=== PATIENT | female | born 1945 | race Caucasian/White ===

== ENCOUNTER 2020-06-08 17:29 | Inpatient (IN) ==
[2020-06-08] MEDS ORDERED: SODIUM CHLORIDE 0.9% 1000ML 500 ML IV ONE (17:37)
--- NOTE | 2020-06-08 17:47 | Emergency Department Note ---
Impression & Plan Aspiration pneumonia, Acute hypotension, Hypoxia, Acute respiratory acidosis, Post-operative pain ED Provider Note NAME: ALEXIS SHELL AGE: 74 SEX: F : 1945 ARRIVES VIA: Ambulance INFORMANT: Patient, ED PROVIDER(S): Micha Olsen DO CHIEF COMPLAINT: Difficulty breathing HPI: The patient is a 74-year-old female who presented to the emergency department from the surgery center at [facility] for an evaluation of low blood pressure and difficulty breathing. There is no reported vomiting. The patient is status post laparoscopic cholecystectomy as well as incisional hernia repair. This was done under general anesthesia. The patient arrived to the emergency department with all of her paperwork from [facility]. She received medazepam fentanyl propofol lidocaine rocuronium famotidine dexamethasone Dantron and then she received phenylephrine and ephedrine and push dose pressors. She also received neostigmine acetaminophen sugammadex and glycopyrrolate. She was in the postoperative area and still was not able to be easily aroused. She received an IV fluid bolus. Because of ongoing hypotension and hypoxia she was sent to the emergency department for further evaluation. The patient was placed on supplemental oxygen and at this time is maintaining an acceptable oxygen saturation. She denies having any chest pain or trouble with cough. She did have significant abdominal pain upon arrival. ROS: See above HPI for pertinent positives & negatives. A total of 10 systems reviewed and were otherwise negative. PAST MEDICAL HISTORY: See Below PAST SURGICAL HISTORY: See Below FAMILY HISTORY: See Below SOCIAL HISTORY: See Below HOME MEDICATIONS: See Below ALLERGIES: See Below VITALS: See Below PHYSICAL EXAMINATION: GENERAL: The patient is awake to verbal commands. She is somnolent and falls asleep easily. She does not appear to be uncomfortable this time. EYES: The conjunctivae are clear. The pupils are constricted and minimally reactive bilaterally. EARS, NOSE, MOUTH AND THROAT: The nose is without any evidence of any deformity. Mucous membranes are moist. NECK: The neck is nontender and supple. RESPIRATORY: Shallow respirations were noted. There were diminished breath sounds at the left base. There is no tachypnea or conversational dyspnea. CARDIOVASCULAR: Regular rate and rhythm noted there no murmurs rubs or gallops normal S1 normal S2. GASTROINTESTINAL: The abdomen is mildly distended but soft. Postoperative sites are noted with clean wound dressings in place. MUSCULOSKELETAL/EXTREMITIES: There is no evidence of gross deformity full range of motion is noted in the hips and shoulders. SKIN: There is no obvious evidence of any rash. There are no petechiae, pallor or cyanosis noted. NEUROLOGIC: Patient is oriented to person place and situation. MEDICAL DECISION MAKING: The patient is a 74-year-old female who presented to the emergency department from [facility]. The patient had laparoscopic cholecystectomy with incisional hernia repair. She received general anesthesia. It was noted that the patient was hypotensive hypoxic and difficult to arouse in the postoperative arena. There is no reported vomiting but the patient presented to the emergency department with a work-up that could be consistent with aspiration pneumonia. I discussed the patient's laboratory and radiographic studies with her. She was maintained on supplemental oxygen. She was treated with a small IV fluid bolus. She was found to have an elevated troponin in the emergency department which could be secondary to push dose pressors but further radiographic studies were obtained to ensure this was not pulmonary venous thromboembolic disease. I discussed the patient's laboratory and radiographic studies with the on-call general surgeon. He evaluated the patient in the emergency department. I also discussed his case with the on-call [facility] hospitalist. They will evaluate the patient in the emergency department for further management and disposition. Triage Nursing notes reviewed. Prior medical records reviewed Vital Signs: reviewed and remarkable for hypoxia and initial hypotension. Differential diagnosis: Differential diagnosis in this patient could include overdose, medication reacti on, aspiration, cardiac dysrhythmia and other differential diagnoses were considered. ER treatment provided: See below Diagnostics interpreted by me: ECG: EKG was obtained in the emergency department. My interpretation is normal sinus rhythm at 69 bpm. There is no ectopy. QTC was prolonged at 510. There were no acute ST segment abnormalities. This was compared to a tracing from November 222019. The QTC is prolonged compared to the previous tracing. Cardiac Monitoring: An order was placed for continuous cardiac monitoring. The monitor shows a rate of 90 with sinus rhythm. Laboratory studies: As stated above and show below. Imaging studies: See below Consultation(s): 1829: I discussed this case with Dr. Shell. He was on-call for general surgery. 2009: I discussed this case with Dr[facility] He will evaluate the patient in the emergency department for further management and disposition. 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 Beliefs That Will Affect Care: None Current Living Situation: Spouse Feels Safe at Home: Yes Allergies Allergies Allergy/AdvReac Type Severity Reaction Status Date / Time Sulfa (Sulfonamide Allergy Rash Verified 06/08/20 19:53 Antibiotics) Home Meds Home Medications Medication Instructions Recorded Confirmed Probiotic 3,000 mmu cells PO HS 11/16/19 06/08/20 amlodipine 10 mg PO HS 11/16/19 06/08/20 aspirin [Aspir-81] 81 mg PO QAM 11/16/19 06/08/20 lisinopril 5 mg PO HS 11/16/19 06/08/20 simvastatin 20 mg PO HS 11/16/19 06/08/20 acetaminophen [Tylenol Extra 1,000 mg PO Q6H PRN 06/08/20 06/08/20 Strength] cholecalciferol (vitamin D3) 20 mcg PO DAILY 06/08/20 06/08/20 [Vitamin D3] Results & Data (ED) Vital Signs Vital Signs - 24 hr 06/08/20 17:32 06/08/20 17:35 06/08/20 17:41 Temperature 36.7 C Temperature Source Oral Pulse Rate 64 65 65 Pulse Rate [Apical] Pulse Rate from SpO2 Sensor 64 Pulse Rhythm Regular Pulse Strength Normal Respiratory Rate 23 13 18 Respiratory Effort / Characteristics Non-Labored Respiratory Depth Normal Blood Pressure 85/55 L 85/55 L Blood Pressure [Left Arm] Blood Pressure Mean 65 65 Blood Pressure Mean [Left Arm] Blood Pressure Position Lying Pulse Oximetry 87 L Oxygen Delivery Method Room Air Oxygen Flow Rate Sepsis Recent Fever Within 48 Hours No Sepsis New/Unexplained Change in Mental Status N/A Sepsis Action Taken by Nursing No Action Required End-Tidal CO2 06/08/20 18:00 06/08/20 18:17 06/08/20 18:30 Temperature Temperature Source Pulse Rate 62 83 62 Pulse Rate [Apical] Pulse Rate from SpO2 Sensor 64 82 61 Pulse Rhythm Pulse Strength Respiratory Rate Respiratory Effort / Characteristics Respiratory Depth Blood Pressure 121/51 L Blood Pressure [Left Arm] Blood Pressure Mean 87 Blood Pressure Mean [Left Arm] Blood Pressure Position Pulse Oximetry 98 96 90 Oxygen Delivery Method Nasal Cannula Oxygen Flow Rate 3 Sepsis Recent Fever Within 48 Hours Sepsis New/Unexplained Change in Mental Status Sepsis Action Taken by Nursing End-Tidal CO2 24 25 26 06/08/20 19:44 Temperature Temperature Source Pulse Rate Pulse Rate [Apical] 81 Pulse Rate from SpO2 Sensor Pulse Rhythm Pulse Strength Respiratory Rate 18 Respiratory Effort / Characteristics Respiratory Depth Blood Pressure Blood Pressure [Left Arm] 131/69 Blood Pressure Mean Blood Pressure Mean [Left Arm] 89 Blood Pressure Position Pulse Oximetry 90 Oxygen Delivery Method Nasal Cannula Oxygen Flow Rate 3 Sepsis Recent Fever Within 48 Hours Sepsis New/Unexplained Change in Mental Status Sepsis Action Taken by Nursing End-Tidal CO2 Home Medications Current Medication List: was personally reviewed by me Laboratory Data Attestation: I reviewed the patient's lab results. Result diagrams: 06/08/20 18:33 06/08/20 18:33 Lab Results 06/08/20 06/08/20 06/08/20 Range/Units 18:33 18:33 18:33 WBC 21.21 H (4.8-10.8) K/uL RBC 4.15 L (4.2-5.4) M/uL Hgb 12.4 (12.0-16.0) g/dL Hct 38.4 (37-47) % MCV 92.5 (80-100) fL MCH 29.9 (25-34) pg MCHC 32.3 (32-36) g/dL RDW Std Deviation 45.7 (36.4-46.3) fL RDW Coeff of Reji 13.5 (11.5-14.5) % Plt Count 367 (130-400) K/uL MPV 9.8 (7.4-10.4) fL Immature Gran % (Auto) 0.3 % Neut % (Auto) 94.2 % Lymph % (Auto) 3.9 % [place] % (Auto) 1.6 % Eos % (Auto) 0.0 % Baso % (Auto) 0.0 % Neut # (Auto) 19.97 H (1.4-6.5) K/uL Lymph # (Auto) 0.82 L (1.2-3.4) K/uL [place] # (Auto) 0.34 (0.11-0.59) K/uL Eos # (Auto) 0.01 (0-0.5) K/uL Baso # (Auto) 0.01 (0-0.2) K/uL Immature Gran # (Auto) 0.06 H (0.00-0.02) K/uL PT 10.6 (9.0-12.0) Seconds INR 1.0 (0.9-1.1) APTT 25.4 (21.0-31.0) Seconds PTT Ratio 0.9 VBG pH (7.36-7.41) VBG pCO2 (38-50) mmHg VBG pO2 mmHg VBG HCO3 mmol/L VBG O2 Saturation % VBG Base Excess mEq/L Barometric Pressure mm/Hg Sodium 139 (136-145) mmol/L Potassium 3.3 L (3.5-5.1) mmol/L Chloride 109 H (98-107) mmol/L Carbon Dioxide 21 (21-32) mmol/L Anion Gap 9.0 (3-11) BUN 15 (7-18) mg/dl Creatinine 1.17 (0.6-1.2) mg/dl Est Cr Clr Drug Dosing 39.1 ml/min Est GFR ( Amer) 53.2 Est GFR (Non-Af Amer) 45.9 BUN/Creatinine Ratio 12.7 (10-20) Glucose 154 H (70-99) mg/dl Calcium 8.1 L (8.5-10.1) mg/dl Magnesium 2.1 (1.8-2.4) mg/dl Total Bilirubin 0.4 (0.2-1) mg/dl AST 61 H (15-37) U/L ALT 53 (12-78) U/L Alkaline Phosphatase 58 (45-117) U/L Troponin I 0.135 H* (0-0.045) ng/ml Total Protein 6.7 (6.4-8.2) gm/dl Albumin 3.4 (3.4-5.0) gm/dl Globulin 3.3 (2.5-4.0) gm/dl Albumin/Globulin Ratio 1.0 (0.9-2) 06/08/20 Range/Units 18:33 WBC (4.8-10.8) K/uL RBC (4.2-5.4) M/uL Hgb (12.0-16.0) g/dL Hct (37-47) % MCV (80-100) fL MCH (25-34) pg MCHC (32-36) g/dL RDW Std Deviation (36.4-46.3) fL RDW Coeff of Reji (11.5-14.5) % Plt Count (130-400) K/uL MPV (7.4-10.4) fL Immature Gran % (Auto) % Neut % (Auto) % Lymph % (Auto) % [place] % (Auto) % Eos % (Auto) % Baso % (Auto) % Neut # (Auto) (1.4-6.5) K/uL Lymph # (Auto) (1.2-3.4) K/uL [place] # (Auto) (0.11-0.59) K/uL Eos # (Auto) (0-0.5) K/uL Baso # (Auto) (0-0.2) K/uL Immature Gran # (Auto) (0.00-0.02) K/uL PT (9.0-12.0) Seconds INR (0.9-1.1) APTT (21.0-31.0) Seconds PTT Ratio VBG pH 7.24 L (7.36-7.41) VBG pCO2 51 H (38-50) mmHg VBG pO2 31 mmHg VBG HCO3 21 mmol/L VBG O2 Saturation < 60.0 % VBG Base Excess -6.5 mEq/L Barometric Pressure 734.3 mm/Hg Sodium (136-145) mmol/L Potassium (3.5-5.1) mmol/L Chloride (98-107) mmol/L Carbon Dioxide (21-32) mmol/L Anion Gap (3-11) BUN (7-18) mg/dl Creatinine (0.6-1.2) mg/dl Est Cr Clr Drug Dosing ml/min Est GFR ( Amer) Est GFR (Non-Af Amer) BUN/Creatinine Ratio (10-20) Glucose (70-99) mg/dl Calcium (8.5-10.1) mg/dl Magnesium (1.8-2.4) mg/dl Total Bilirubin (0.2-1) mg/dl AST (15-37) U/L ALT (12-78) U/L Alkaline Phosphatase (45-117) U/L Troponin I (0-0.045) ng/ml Total Protein (6.4-8.2) gm/dl Albumin (3.4-5.0) gm/dl Globulin (2.5-4.0) gm/dl Albumin/Globulin Ratio (0.9-2) Administered Medications Discontinued Medications Sodium Chloride (Nss 1000ml) 500 mls @ 999 mls/hr IV .Q31M ONE Stop: 06/08/20 18:07 Last Infusion: 06/08/20 18:25 Dose: 0 mls/hr Documented by: [id number] Admin: 06/08/20 17:55 Dose: 999 mls/hr Documented by: [id number] Ioversol (Optiray 320 125ml) 119 ml IV ONCE ONE Stop: 06/08/20 19:18 Last Admin: 06/08/20 19:19 Dose: 119 ml Documented by: [id number] Imaging Data Radiologist's Impression: CT ANGIOGRAPHY OF THE CHEST, PULMONARY EMBOLUS PROTOCOL CLINICAL HISTORY: Dyspnea. COMPARISON STUDY: Chest radiograph November 22, 2019 and June 08, 2020. TECHNIQUE: Following IV administration of 119 mL of Optiray-320, helical axial images of the chest were obtained utilizing the pulmonary embolus protocol. Maximal intensity projections and sagittal and coronal reformats were viewed on an independent 3D workstation. IV contrast was administered without complication. Automated exposure control was utilized for the study. A dose lowering technique was utilized adhering to the principles of ALARA. CT DOSE: 312.94 mGy.cm FINDINGS: No pulmonary emboli are identified. There is no evidence for thoracic aortic dissection. Mild cardiomegaly is noted. There is no pericardial effusion. A small hiatal hernia is noted. The esophagus is fluid-filled and mildly dilated. There is no pneumothorax. There are trace bilateral pleural effusions. Moderate right lower lobe airspace opacity is noted. There is also airspace opacity within the dependent aspects of the upper lobes and left lower lobe. There is moderate emphysema. Interlobular septal thickening indicates pulmonary edema. Visualized portions of the upper abdomen demonstrate pneumoperitoneum and a small amount of perihepatic ascites. There is no thoracic lymphadenopathy. IMPRESSION: 1. No pulmonary emboli identified. 2. Interlobular septal thickening consistent with interstitial pulmonary edema. Trace bilateral pleural effusions. 3. Moderate right lower lobe airspace opacity. Additional mild airspace opacities within the bilateral upper lobes and left lower lobe. The findings may reflect pneumonia or atelectasis. 4. Moderate emphysema. 5. Small hiatal hernia. Mildly dilated fluid-filled esophagus which could place the patient at risk for aspiration. 6. Pneumoperitoneum and perihepatic ascites which is likely postsurgical. ACT 112: Negative or not required by law. Electronically signed by: Asher Butler M.D. 06/08/2020 7:43 PM Dictated: 06/08/201934 Transcribed: 06/08/201934 XR chest 1V portable CLINICAL HISTORY: Dyspnea COMPARISON STUDY: Chest radiograph November 22, 2019 FINDINGS: There is no pneumothorax or pleural effusion. Mild interstitial thickening is noted. Linear bibasilar opacities are present. There is mild cardiomegaly. Lung volumes are mildly diminished. IMPRESSION: 1. Mild interstitial thickening which favors mild pulmonary edema. An infectious process could appear similar but is considered less likely. Radiographic follow up is recommended. 2. Linear bibasilar opacities which favor atelectasis. ACT 112: Negative or not required by law. Electronically signed by: Asher Butler M.D. 06/08/2020 6:13 PM Dictated: 06/08/201811 Transcribed: 06/08/201811 Prescription Drug Monitoring [place] Drug Monitoring Program reviewed and no issues identified Blood Pressure Blood Pressure Findings: Low blood pressure Discharge Plan Visit Data Chief Complaint: Hypotension Stated Complaint: hypotension ED Provider: Micha Olsen Discharge Problem: Aspiration pneumonia, Acute hypotension, Hypoxia, Acute respiratory acidosis, Post-operative pain Patient Disposition: Being Evaluated by Hospitalist Condition: Good Forms Stand Alone Forms: My [facility] [employer] Prescriptions Prescriptions: No Action aspirin [Aspir-81] 81 mg Tablet,Delayed Release (Dr/Ec) 81 mg PO QAM RF: 0 amlodipine 10 mg Tablet 10 mg PO HS RF: 0 simvastatin 20 mg Tablet 20 mg PO HS RF: 0 lisinopril 10 mg Tablet 5 mg PO HS RF: 0 Probiotic 3 billion cell Capsule 3,000 mmu cells PO HS RF: 0 acetaminophen [Tylenol Extra Strength] 500 mg Tablet 1,000 mg PO Q6H PRN (Reason: Pain) RF: 0 cholecalciferol (vitamin D3) [Vitamin D3] 10 mcg (400 unit) Tablet 20 mcg PO DAILY RF: 0 Referrals Referrals: Jefferson Giron MD [Primary Care Provider] - Discharge Problem: Aspiration pneumonia Qualifiers: Aspiration pneumonia type: unspecified Laterality: bilateral Lung location: lower lobe of lung Qualified Code(s): J69.0 - Pneumonitis due to inhalation of food and vomit
--- NOTE | 2020-06-08 18:15 | XRay Report ---
XR chest 1V portable CLINICAL HISTORY: Dyspnea COMPARISON STUDY: Chest radiograph November 22, 2019 FINDINGS: There is no pneumothorax or pleural effusion. Mild interstitial thickening is noted. Linear bibasilar opacities are present. There is mild cardiomegaly. Lung volumes are mildly diminished. IMPRESSION: 1. Mild interstitial thickening which favors mild pulmonary edema. An infectious process could appear similar but is considered less likely. Radiographic follow up is recommended. 2. Linear bibasilar opacities which favor atelectasis. ACT 112: Negative or not required by law. Electronically signed by: Asher Butler M.D. 06/08/2020 6:13 PM
[2020-06-08 18:43] LABS: Basophils # (auto) 0.01 K/uL (0-0.2); Eosinophils # (auto) 0.01 K/uL (0-0.5); Hematocrit (blood only) 38.4 % (37-47); Hemoglobin 12.4 g/dL (12.0-16.0); Immature Granulocytes # (auto) 0.06 K/uL (0.00-0.02); Immature Granulocytes % (auto) 0.3 %; Lymphocytes # (auto) 0.82 K/uL (1.2-3.4); Lymphocytes % (auto) 3.9 %; Mean Corpuscular Hemoglobin 29.9 pg (25-34); Mean Corpuscular Hgb Conc 32.3 g/dL (32-36); Mean Corpuscular Volume 92.5 fL (80-100); Mean Platelet Volume 9.8 fL (7.4-10.4); Monocytes # (auto) 0.34 K/uL (0.11-0.59); Monocytes % (auto) 1.6 %; Neutrophils # (auto) 19.97 K/uL (1.4-6.5); Neutrophils % (auto) 94.2 %; Platelet Count 367 K/uL (130-400); RDW Coefficient of Variation 13.5 % (11.5-14.5); RDW Standard Deviation 45.7 fL (36.4-46.3); Red Blood Count 4.15 M/uL (4.2-5.4); White Blood Count 21.21 K/uL (4.8-10.8)
[2020-06-08 18:49] LABS: Base Excess VBG -6.5 mEq/L; HCO3 VBG 21 mmol/L; PCO2 VBG 51 mmHg (38-50); PO2 VBG 31 mmHg; pH VBG 7.24 (7.36-7.41)
[2020-06-08 18:50] LABS: Oxygen Saturation VBG < 60.0 %
[2020-06-08 18:55] LABS: Partial Thromboplastin Ratio 0.9; Partial Thromboplastin Time 25.4 Seconds (21.0-31.0); Prothrombin Time 10.6 Seconds (9.0-12.0)
[2020-06-08 18:59] LABS: Albumin Level 3.4 gm/dl (3.4-5.0); BUN Creatinine Ratio 12.7 (10-20); Calcium 8.1 mg/dl (8.5-10.1); Creatinine Clr Calc Pharmacy 39.1 ml/min; Est GFR (African American) 53.2; Est GFR (Non-African American) 45.9; Magnesium 2.1 mg/dl (1.8-2.4); Potassium 3.3 mmol/L (3.5-5.1)
[2020-06-08 19:13] LABS: Bilirubin,Total 0.4 mg/dl (0.2-1); Globulin 3.3 gm/dl (2.5-4.0); Total Protein 6.7 gm/dl (6.4-8.2); Troponin I 0.135 ng/ml (0-0.045)
[2020-06-08] MEDS ORDERED: OPTIRAY 320 125ml IV ONE (19:17)
--- NOTE | 2020-06-08 19:44 | CT Scan Report ---
CT ANGIOGRAPHY OF THE CHEST, PULMONARY EMBOLUS PROTOCOL CLINICAL HISTORY: Dyspnea. COMPARISON STUDY: Chest radiograph November 22, 2019 and June 08, 2020. TECHNIQUE: Following IV administration of 119 mL of Optiray-320, helical axial images of the chest we re obtained utilizing the pulmonary embolus protocol. Maximal intensity projections and sagittal and coronal reformats were viewed on an independent 3D workstation. IV contrast was administered withou t complication. Automated exposure control was utilized for the study. A dose lowering technique wa s utilized adhering to the principles of ALARA. CT DOSE: 312.94 mGy.cm FINDINGS: No pulmonary emboli are identified. There is no evidence for thoracic aortic dissection. M ild cardiomegaly is noted. There is no pericardial effusion. A small hiatal hernia is noted. The esop hagus is fluid-filled and mildly dilated. There is no pneumothorax. There are trace bilateral pleural effusions. Moderate right lower lobe airspace opacity is noted. There is also airspace opacity withi n the dependent aspects of the upper lobes and left lower lobe. There is moderate emphysema. Interlob ular septal thickening indicates pulmonary edema. Visualized portions of the upper abdomen demonstrat e pneumoperitoneum and a small amount of perihepatic ascites. There is no thoracic lymphadenopathy. IMPRESSION: 1. No pulmonary emboli identified. 2. Interlobular septal thickening consistent with interstitial pulmonary edema. Trace bilateral pleur al effusions. 3. Moderate right lower lobe airspace opacity. Additional mild airspace opacities within the bilatera l upper lobes and left lower lobe. The findings may reflect pneumonia or atelectasis. 4. Moderate emphysema. 5. Small hiatal hernia. Mildly dilated fluid-filled esophagus which could place the patient at risk f or aspiration. 6. Pneumoperitoneum and perihepatic ascites which is likely postsurgical. ACT 112: Negative or not required by law. Electronically signed by: Asher Butler M.D. 06/08/2020 7:43 PM
[2020-06-08] MEDS ORDERED: NITROGLYCERIN SL 0.4 MG/TAB TAB SL PRN (21:27)
[2020-06-08] MEDS ORDERED: PIPERACILL/TAZOBAC CONSULT ACTIVE PRN (21:27)
[2020-06-08] MEDS ORDERED: PIPERACILLIN/TAZOBACTAM 3.375 GM in DEXTROSE 5% 100 ML IV ONE (21:27)
[2020-06-08] MEDS: D5W AND NSS 1,000 ML IV SCH (21:40)
[2020-06-08] MEDS ORDERED: PROMETHAZINE HCL 12.5 MG in SODIUM CHLORIDE 0.9% 50 ML IV PRN (21:49)
[2020-06-08] MEDS: POTASSIUM CHLORIDE / WTR 10 MEQ/100 ML PLCT IV SCH ×2 (22:02→23:37)
[2020-06-08] MEDS: LACTOBACILLUS ACIDOPHILUS (FLORANEX) TAB PO SCH (22:11)
[2020-06-08] MEDS: SIMVASTATIN 20 MG TAB PO SCH (22:11)
[2020-06-08 22:34] LABS: Base Excess ABG -7.5 mEq/L (-9-1.8); HCO3 ABG 18 mmol/L (19-24); Oxygen Saturation ABG 88.9 % (90-95); PCO2 ABG 35 mmHg (35-46); PO2 ABG 62 mmHg (80-95); pH ABG 7.32 (7.35-7.45)
[2020-06-08 22:35] LABS: Allen Test POS (Pos)
--- NOTE | 2020-06-08 23:57 | Surgery Consultation ---
Date of Consultation June 08, 2020 Assessment & Plan (1) Aspiration pneumonia: management of aspiration pneumonitis and hypoxia/hypotension CT with postoperative chgs- fluid- H/H stable- supportive care will follow in hospital, no surgical intervention necessary at this point History of Present Illness Attending Physician: Millicent Beltran MD History of Present Illness pt adm through ER with likely aspiration pneumonitis, hypoxia, hypotension s/p lap [place] and hernia repair today at [facility] Allergies Allergy/AdvReac Type Severity Reaction Status Date / Time Sulfa (Sulfonamide Allergy Rash Verified 06/08/20 19:53 Antibiotics) Home Medications Home Medications Medication Instructions Recorded Confirmed Type Probiotic 3,000 mmu cells PO HS 11/16/19 06/08/20 History amlodipine 10 mg PO HS 11/16/19 06/08/20 History aspirin [Aspir-81] 81 mg PO QAM 11/16/19 06/08/20 History lisinopril 5 mg PO HS 11/16/19 06/08/20 History simvastatin 20 mg PO HS 11/16/19 06/08/20 History acetaminophen [Tylenol Extra 1,000 mg PO Q6H PRN 06/08/20 06/08/20 History Strength] cholecalciferol (vitamin D3) 20 mcg PO DAILY 06/08/20 06/08/20 History [Vitamin D3] Patient History Medical History Chronic kidney disease Stage III Hyperlipidemia Hypertension Surgical History History of bilateral tubal ligation Social History Smoking Status: Former smoker Second Hand Exposure: No; Hx Alcohol Use: Yes Alcohol type: wine Hx Substance Use: No Preferred Language: Uzbek Communication Ability: Effective Baggage Agent Supervisor Required: No Beliefs That Will Affect Care: None Current Living Situation: Spouse Other Information That Helps Us Care for You: No Feels Safe at Home: Yes Safety Concerns: Feels Safe At This Time Review of Systems Review of Systems: All systems reviewed & are unremarkable except as noted in HPI & below Physical Exam Physical Exam: awake, alert, responsive abd- soft, incisions intact, min tenderness Constitutional: + ill appearing; no acute distress Respiratory: normal respiratory effort; no respiratory distress and no labored breathing Cardiovascular: Rate/Rhythm: regular rate Skin: no rashes, warm and dry Neurologic: awake Psychiatric: Orientation: alert Results & Data Vital Signs (Past 12 Hours) Vital Signs Temp Pulse Pulse Resp BP BP Pulse Ox 06/08/20 21:33 79 06/08/20 21:01 36.3 C L 76 16 121/88 96 06/08/20 20:16 68 18 114/62 90 06/08/20 19:44 81 18 131/69 90 06/08/20 18:30 62 90 06/08/20 18:17 83 121/51 L 96 06/08/20 18:00 62 98 06/08/20 17:41 36.7 C 65 18 85/55 L 87 L 06/08/20 17:35 65 13 06/08/20 17:32 64 23 85/[address] PG Care Time/CCT Total # of Minutes Spent Total Time Spent with Patient: Total time spent is greater than 50% in coordination of care (as documented) at patient's floor/unit and/or counseling patient: Coding Level of Care Code 51491 Initial Inpt Care Lvl 3 Diagnoses Aspiration pneumonia J69.0 Aspiration pneumonia type: unspecified Laterality: bilateral Lung location: lower lobe of lung (1) Aspiration pneumonia Aspiration pneumonia type: unspecified Laterality: bilateral Lung location: lower lobe of lung Qualified Code(s): J69.0 - Pneumonitis due to inhalation of food and vomit
[2020-06-09] MEDS: PIPERACILLIN/TAZOBACTAM 3.375 GM in DEXTROSE 5% 100 ML IV SCH ×3 (01:11→17:10)
--- NOTE | 2020-06-09 04:09 | History and Physical Report ---
DATE OF ADMISSION: 06/08/2020 CHIEF COMPLAINT: Hypotension postop. HISTORY OF PRESENT ILLNESS: This is a 74-year-old female with past medical history significant for hypertension, history of tobacco abuse, history of hyperlipidemia, history of osteoporosis, status post elective laparoscopic cholecystectomy and ventral hernia repair. Post procedure, the patient was difficult to arouse. She was hypotensive and hypoxic. The patient had general anesthesia for the procedure. She also received phenylephrine and ephedrine and push dose pressors. She also received neostigmine, acetaminophen, Sugammadex, and glycopyrrolate, and she received a fluid bolus. Because of ongoing hypotension, hypoxia, she was sent to the ER for further evaluation. In the ER, currently she is alert and awake and oriented. Her vitals are stable, but her white count was 21,000. Venous blood gas shows pH of 7.24, potassium was 3.3, troponin came as 0.13. Chest x-ray showed possible mild pulmonary edema. CTA of the chest was done which was negative for PE, but showed possible aspiration pneumonitis. EKG shows prolonged QT of 510. Currently, the patient denies any headache. No blurred visions, no earache, no runny nose, has some sore throat from the tube. Denies any chest pain. The patient says she could not take a deep breath because it hurts at the procedure site and it causes some mild shortness of breath. She has some gas pain and also has some right shoulder pain and she is sore over the surgical site. She moved her bowels in the morning, which was normal. She moved her bladder in the ER. Not passing gas down yet. No rash seen. No swelling in the legs. Feeling cold, but denies any fevers. No cough. ALLERGIES: SULFA ANTIBIOTICS. PAST MEDICAL HISTORY: As mentioned above. PAST SURGICAL HISTORY: Cystoscopy, laparoscopic hysterectomy, ligation of oviducts, and today she had laparoscopic cholecystectomy and ventral hernia repair. MEDICATIONS: At home, the patient has Tylenol 1000 mg p.o. q. 6 hours p.r.n., amlodipine 10 mg p.o. at bedtime, aspirin 81 mg p.o. a.m., vitamin D 20 mcg p.o. daily, lisinopril 5 mg p.o. at bedtime, probiotic 1 tablet at bedtime, simvastatin 20 mg p.o. at bedtime. FAMILY HISTORY: Significant for mother had breast cancer; father had lung cancer. SOCIAL HISTORY: . Former smoker, quit in 2012, smoked half pack a day for 38 years. Alcohol occasional. No drug use. REVIEW OF SYSTEMS: As per HPI. Rest of the review of systems negative. PHYSICAL EXAMINATION: GENERAL: The patient is of moderate build, not in acute distress. VITAL SIGNS: Temperature 36.7, pulse 68, respiratory rate 18, blood pressure when she came in was 85/55, currently 114/62, oxygen 90% on 3 liters. HEENT: No pallor, no icterus. Pupils equal, round, and reactive to light. Oral mucosa moist. NECK: No JVD, no neck masses seen. CARDIOVASCULAR: S1, S2 heard, regular rate and rhythm, no murmur, no gallop. RESPIRATORY SYSTEM: Normal AP diameter. No accessory muscle use. No wheezing, no crackles. ABDOMEN: Soft, bowel sounds very sluggish. Surgical sites with dressing. No drainage seen. CENTRAL NERVOUS SYSTEM: Cranial nerves II-XII grossly intact. Nonfocal. EXTREMITIES: No edema, no erythema. LABORATORY DATA: WBC 21, hemoglobin 12.4, hematocrit 38.4, platelets 367. PT 10.6, INR 1, APTT 25.4. Venous blood gas with pH of 7.24, pCO2 of 51, pO2 of 31, bicarbonate 21. Sodium 139, potassium 3.3, chloride 109, bicarbonate 21, BUN 15, creatinine 1.17, serum glucose 154, calcium 8.1, magnesium 2.1, total bilirubin 0.4, AST 61, ALT 53, alkaline phosphatase 58, troponin 1 of 0.135. IMAGING DATA: Chest x-ray, mild interstitial thickening, which favors mild pulmonary edema. infectious process could appear similar, but is considered less likely. Linear bibasilar opacities, which favor atelectasis. CTA of the chest, no PE. Interlobular septal thickening consistent with interstitial pulmonary edema. Moderate right lower lobe airspace opacity. Additional mid airspace opacities within the bilateral upper lobes and left lower lobe. These findings may reflect pneumonia, moderate emphysema, mildly dilated fluid filled oesophagus which could place the patient at risk for aspiration. Pneumoperitoneum and perihepatic ascites which is likely postsurgical. EKG: Shows normal sinus rhythm at a rate of 69. Prolonged QT at 510. ASSESSMENT AND PLAN: This is a 74-year-old female who is status post laparoscopic cholecystectomy and ventral hernia repair. Was difficult to arouse post surgery and with persistent hypotension and hypoxia and was brought into the ER. After she received some push dose pressors and phenylephrine post surgery and she received fluid bolus, currently blood pressure is stable, saturating 90% on 3 liters. 1. Hypoxia, aspiration pneumonitis. Postprocedure continue oxygen supplementation. Venous blood gas, pH of 7.24. We will repeat ABG. Continue with IV Zosyn and monitor in the [employer] tele and follow the response. 2. Hypotension, postoperatively received pressors post op and fluid bolus. Will continue IV normal saline 100 mL per hour. Chest x-ray showed some mild congestion. She will be currently n.p.o. until seen by speech for aspiration pneumonitis. We will hold her home blood pressure meds. 3. Mild elevation of troponin, could be demand ischemia from hypoxemia and hypotension. Could also be from the pressors she received post-surgery for hypotension. Currently, patient is asymptomatic. EKG is unremarkable. Follow the serial enzymes and echo, monitor in the med tele. 4. Prolonged QT. Avoid QT prolonging drugs. We will follow the repeat EKG in the a.m. 5. Hypokalemia, will replace. 6. History of hypertension. Holding home p.o. blood pressure meds for hypotension. To restart when blood pressure comes up. 7. History of hyperlipidemia. Continue statin. 8. s/p lap [place] nd ventral hernia repair. currently npo. Surgery consulted. 9. Deep vein thrombosis prophylaxis, sequential compression devices for now. 10. Disposition: Monitor in the [employer] tele. Level 1 full code. Expect to discharge home and follow with family doctor. MTDD
[2020-06-09] MEDS: ACETAMINOPHEN 325 MG TAB PO PRN ×2 (04:50→08:59)
--- NOTE | 2020-06-09 07:05 | Surgery Progress Note ---
Date of Service June 09, 2020 Assessment & Plan (1) Aspiration pneumonia: Patient is awake and alert with improvement over the emergency room last evening She does have oxygen in place and slight cough She is tolerating sips of liquids Her abdomen is soft No surgical intervention indicated Advance diet as tolerated per the medical team-I think she is currently n.p.o.- sips for meds Check a.m. labs Results & Data Vital Signs (Past 12 Hours) Vital Signs Temp Pulse Pulse Pulse Resp BP BP 06/09/20 03:15 37.2 C 88 20 145/74 H 06/09/20 00:02 77 06/08/20 23:38 36.6 C 84 18 128/67 06/08/20 21:33 79 06/08/20 21:01 36.3 C L 76 16 121/88 06/08/20 20:16 68 18 114/62 06/08/20 19:44 81 18 131/69 Pulse Ox 06/09/20 03:15 88 L 06/09/20 00:02 06/08/20 23:38 89 L 06/08/20 21:33 06/08/20 21:01 96 06/08/20 20:16 90 06/08/20 19:44 90 PG Care Time/CCT Total # of Minutes Spent Total Time Spent with Patient: Total time spent is greater than 50% in coordination of care (as documented) at patient's floor/unit and/or counseling patient: Coding Level of Care Code None Diagnoses Aspiration pneumonia J69.0 Aspiration pneumonia type: unspecified Laterality: bilateral Lung location: lower lobe of lung (1) Aspiration pneumonia Aspiration pneumonia type: unspecified Laterality: bilateral Lung location: lower lobe of lung Qualified Code(s): J69.0 - Pneumonitis due to inhalation of food and vomit
[2020-06-09] MEDS: D5W AND NSS 1,000 ML IV SCH ×2 (07:58→17:16)
[2020-06-09] MEDS: ASPIRIN 81 MG ECTAB PO SCH (08:01)
[2020-06-09 08:28] LABS: Base Excess ABG -2.7 mEq/L (-9-1.8); HCO3 ABG 21 mmol/L (19-24); Oxygen Saturation ABG 98.2 % (90-95); PCO2 ABG 33 mmHg (35-46); PO2 ABG 108 mmHg (80-95); pH ABG 7.42 (7.35-7.45)
[2020-06-09 08:31] LABS: Allen Test Pos (Pos)
[2020-06-09 08:33] LABS: Hemoglobin 12.2 g/dL (12.0-16.0); Mean Corpuscular Hemoglobin 31.3 pg (25-34); Mean Corpuscular Hgb Conc 33.9 g/dL (32-36); Mean Corpuscular Volume 92.3 fL (80-100); Mean Platelet Volume 9.8 fL (7.4-10.4); Platelet Count 342 K/uL (130-400); RDW Coefficient of Variation 13.9 % (11.5-14.5); RDW Standard Deviation 47.2 fL (36.4-46.3); White Blood Count 22.25 K/uL (4.8-10.8)
[2020-06-09 08:49] LABS: BUN Creatinine Ratio 10.4 (10-20); Calcium 8.5 mg/dl (8.5-10.1); Est GFR (African American) 59.2; Est GFR (Non-African American) 51.1; Potassium 3.9 mmol/L (3.5-5.1)
[2020-06-09 08:52] LABS: Immature Granulocytes # (auto) 0.06 K/uL (0.00-0.02); Immature Granulocytes % (auto) 0.3 %; Lymphocytes % (auto) 5.8 %; Monocytes # (auto) 0.78 K/uL (0.11-0.59); Monocytes % (auto) 3.5 %; Neutrophils # (auto) 20.11 K/uL (1.4-6.5); Neutrophils % (auto) 90.4 %
[2020-06-09 08:55] LABS: Troponin I 0.172 ng/ml (0-0.045)
[2020-06-09] MEDS: CHOLECALCIFEROL (VITAMIN D) 400 UNITS TABLET PO SCH (09:00)
--- NOTE | 2020-06-09 09:52 | Hospitalist Progress Note ---
Date of Service June 09, 2020 Assessment & Plan (1) Hypoxia: (2) Aspiration pneumonitis: Post op acute hypoxic respiratory failure secondary to aspiration. CTA did not show any PE. It did show RLL opacity, fluid filled esophagus, small hiatal hernia Patient tolerating liquid diet. Aspiration precautions DIES[employer] ENG[employer]TER recommendations appreciated Aspiration likely in the setting of poor recovery post op as reported in H/P Based on CT findings, will get GI evaluation to see if any further evaluation is needed (3) Acute hypotension: Likely due to post op med effects and aspiration Resolved now Continue to monitor BP (4) Acute respiratory acidosis: Resolved (5) Elevated troponin: Troponin was elevated Likely due to demand EKG is NSR, no ischemic changes Echo reviewed. Essentially unremarkable (6) Prolonged QT interval: QTc was 510 on admission, now normalized 451 Likely due to effects of anesthetic meds Avoid QT prolonging meds (7) S/P laparoscopic cholecystectomy: S/p lap [place] and ventral hernia repair Surgical site looks fine Pneumoperitoneum seen on CT as expected Passing flatus. Continue liquid diet and monitor Surgery on board Spoke with Dr Eason who was involved in surgery outpatient (8) DVT prophylaxis: SCD for now Admission and Anticipated Discharge Date Admission Date: June 08, 2020 Subjective Patient seen and examined Reports shoulder pain is improved Denied any chest pain Still has some shortness of breath but stated this is improved. Denied any fevers, nausea,vomiting. States she feels cold but that she is always cold Reports surgical site discomfort is better. Has started passing flatus but yet to move her bowel Denied any urinary problems Physical Exam Constitutional: + well hydrated; no acute distress Eyes: PERRL, conjunctivae normal, anicteric sclerae ENMT: external ear and nose normal, oropharynx normal Nasal cannula in situ Respiratory: normal respiratory effort; no respiratory distress Auscultation: + diminished lung sounds Mild crackles right lower lung zone Cardiovascular: RRR, no murmur, no edema Gastrointestinal (Abdomen): normal bowel sounds, soft, nontender, no hepatosplenomegaly Clean dressing over surgical site Musculoskeletal: no cyanosis or clubbing, extremities motor strength 5/5 Neurologic: PERRL, EOMI, accommodation nl, no face palsy, no dysarthria Psychiatric: A+Ox3, euthymic affect Results & Data Results & Data ([facility]) Vital Signs (Past 12 Hours) Vital Signs Temp Pulse Pulse Resp BP BP Pulse Ox 06/09/20 07:42 37.7 C H 102 H 20 136/78 90 06/09/20 07:20 84 06/09/20 03:15 37.2 C 88 20 145/74 H 88 L 06/09/20 00:02 77 06/08/20 23:38 36.6 C 84 18 128/67 89 L Laboratory Results Laboratory Results - last 24 hr 06/08/20 06/08/20 06/08/20 18:33 18:33 18:33 WBC 21.21 H RBC 4.15 L Hgb 12.4 Hct 38.4 MCV 92.5 MCH 29.9 MCHC 32.3 RDW Std Deviation 45.7 RDW Coeff of Reji 13.5 Plt Count 367 MPV 9.8 Immature Gran % (Auto) 0.3 Neut % (Auto) 94.2 Lymph % (Auto) 3.9 [place] % (Auto) 1.6 Eos % (Auto) 0.0 Baso % (Auto) 0.0 Neut # (Auto) 19.97 H Lymph # (Auto) 0.82 L [place] # (Auto) 0.34 Eos # (Auto) 0.01 Baso # (Auto) 0.01 Immature Gran # (Auto) 0.06 H PT 10.6 INR 1.0 APTT 25.4 PTT Ratio 0.9 ABG pH ABG pCO2 ABG pO2 ABG HCO3 ABG O2 Saturation ABG Base Excess Brad Test VBG pH VBG pCO2 VBG pO2 VBG HCO3 VBG O2 Saturation VBG Base Excess Barometric Pressure Oxygen Given Sodium 139 Potassium 3.3 L Chloride 109 H Carbon Dioxide 21 Anion Gap 9.0 BUN 15 Creatinine 1.17 Est Cr Clr Drug Dosing 39.1 Est GFR ( Amer) 53.2 Est GFR (Non-Af Amer) 45.9 BUN/Creatinine Ratio 12.7 Glucose 154 H Calcium 8.1 L Magnesium 2.1 Total Bilirubin 0.4 AST 61 H ALT 53 Alkaline Phosphatase 58 Troponin I 0.135 H* Total Protein 6.7 Albumin 3.4 Globulin 3.3 Albumin/Globulin Ratio 1.0 06/08/20 06/08/20 06/08/20 18:33 22:21 22:21 WBC RBC Hgb Hct MCV MCH MCHC RDW Std Deviation RDW Coeff of Reji Plt Count MPV Immature Gran % (Auto) Neut % (Auto) Lymph % (Auto) [place] % (Auto) Eos % (Auto) Baso % (Auto) Neut # (Auto) Lymph # (Auto) [place] # (Auto) Eos # (Auto) Baso # (Auto) Immature Gran # (Auto) PT INR APTT PTT Ratio ABG pH 7.32 L ABG pCO2 35 ABG pO2 62 L ABG HCO3 18 L ABG O2 Saturation 88.9 L ABG Base Excess -7.5 Brad Test POS VBG pH 7.24 L VBG pCO2 51 H VBG pO2 31 VBG HCO3 21 VBG O2 Saturation < 60.0 VBG Base Excess -6.5 Barometric Pressure 734.3 735.3 Oxygen Given 4.5L O2 Sodium Potassium Chloride Carbon Dioxide Anion Gap BUN Creatinine Est Cr Clr Drug Dosing Est GFR ( Amer) Est GFR (Non-Af Amer) BUN/Creatinine Ratio Glucose Calcium Magnesium Total Bilirubin AST ALT Alkaline Phosphatase Troponin I 0.144 H* Total Protein Albumin Globulin Albumin/Globulin Ratio 06/09/20 06/09/20 06/09/20 08:10 08:21 08:21 WBC 22.25 H RBC 3.90 L Hgb 12.2 Hct 36.0 L MCV 92.3 MCH 31.3 MCHC 33.9 RDW Std Deviation 47.2 H RDW Coeff of Reji 13.9 Plt Count 342 MPV 9.8 Immature Gran % (Auto) 0.3 Neut % (Auto) 90.4 Lymph % (Auto) 5.8 [place] % (Auto) 3.5 Eos % (Auto) 0.0 Baso % (Auto) 0.0 Neut # (Auto) 20.11 H Lymph # (Auto) 1.30 [place] # (Auto) 0.78 H Eos # (Auto) 0.00 Baso # (Auto) 0.00 Immature Gran # (Auto) 0.06 H PT INR APTT PTT Ratio ABG pH 7.42 ABG pCO2 33 L ABG pO2 108 H ABG HCO3 21 ABG O2 Saturation 98.2 H ABG Base Excess -2.7 Brad Test Pos VBG pH VBG pCO2 VBG pO2 VBG HCO3 VBG O2 Saturation VBG Base Excess Barometric Pressure 737.0 Oxygen Given 5 L Sodium 137 Potassium 3.9 D Chloride 108 H Carbon Dioxide 22 Anion Gap 7.0 BUN 11 Creatinine 1.07 Est Cr Clr Drug Dosing 42.0 Est GFR ( Amer) 59.2 Est GFR (Non-Af Amer) 51.1 BUN/Creatinine Ratio 10.4 Glucose 145 H Calcium 8.5 Magnesium 2.0 Total Bilirubin AST ALT Alkaline Phosphatase Troponin I 0.172 H* Total Protein Albumin Globulin Albumin/Globulin Ratio 06/09/20 10:39 WBC RBC Hgb Hct MCV MCH MCHC RDW Std Deviation RDW Coeff of Reji Plt Count MPV Immature Gran % (Auto) Neut % (Auto) Lymph % (Auto) [place] % (Auto) Eos % (Auto) Baso % (Auto) Neut # (Auto) Lymph # (Auto) [place] # (Auto) Eos # (Auto) Baso # (Auto) Immature Gran # (Auto) PT INR APTT PTT Ratio ABG pH ABG pCO2 ABG pO2 ABG HCO3 ABG O2 Saturation ABG Base Excess Brad Test VBG pH VBG pCO2 VBG pO2 VBG HCO3 VBG O2 Saturation VBG Base Excess Barometric Pressure Oxygen Given Sodium Potassium Chloride Carbon Dioxide Anion Gap BUN Creatinine Est Cr Clr Drug Dosing Est GFR ( Amer) Est GFR (Non-Af Amer) BUN/Creatinine Ratio Glucose Calcium Magnesium Total Bilirubin AST ALT Alkaline Phosphatase Troponin I 0.179 H* Total Protein Albumin Globulin Albumin/Globulin Ratio Diagnostic Findings CTA No pulmonary emboli are identified. There is no evidence for thoracic aortic dissection. Mild cardiomegaly is noted. There is no pericardial effusion. A small hiatal hernia is noted. The esophagus is fluid-filled and mildly dilated. There is no pneumothorax. There are trace bilateral pleural effusions. Moderate right lower lobe airspace opacity is noted. There is also airspace opacity within the dependent aspects of the upper lobes and left lower lobe. There is moderate emphysema. Interlobular septal thickening indicates pulmonary edema. Visualized portions of the upper abdomen demonstrate pneumoperitoneum and a small amount of perihepatic ascites. There is no thoracic lymphadenopathy. IMPRESSION: 1. No pulmonary emboli identified. 2. Interlobular septal thickening consistent with interstitial pulmonary edema. Trace bilateral pleural effusions. 3. Moderate right lower lobe airspace opacity. Additional mild airspace opacities within the bilateral upper lobes and left lower lobe. The findings may reflect pneumonia or atelectasis. 4. Moderate emphysema. 5. Small hiatal hernia. Mildly dilated fluid-filled esophagus which could place the patient at risk for aspiration. 6. Pneumoperitoneum and perihepatic ascites which is likely postsurgical.
--- NOTE | 2020-06-09 10:22 | Electrocardiogram Report ---
Test Reason : Blood Pressure : / mmHG Vent. Rate : 098 BPM Atrial Rate : 098 BPM P-R Int : 168 ms QRS Dur : 082 ms QT Int : 354 ms P-R-T Axes : 037 034 040 degrees QTc Int : 451 ms Normal sinus rhythm Normal ECG When compared with ECG of 08-JUN-2020 17:54, (unconfirmed) QT has shortened Confirmed by Anastacio Wadsworth ([id number]) on 06/09/2020 10:21:47 AM Referred By: REFERRED SELF Confirmed By:Edgar Wadsworth
--- NOTE | 2020-06-09 10:24 | Electrocardiogram Report ---
Test Reason : Blood Pressure : / mmHG Vent. Rate : 069 BPM Atrial Rate : 069 BPM P-R Int : 198 ms QRS Dur : 094 ms QT Int : 476 ms P-R-T Axes : 076 054 070 degrees QTc Int : 510 ms Normal sinus rhythm Abnormal ECG When compared with ECG of 22-NOV-2019 13:10, QT has lengthened Confirmed by Anastacio Wadsworth ([id number]) on 06/09/2020 10:24:39 AM Referred By: REFERRED SELF Confirmed By:Edgar Wadsworth
[2020-06-09] MEDS: SIMVASTATIN 20 MG TAB PO SCH (20:24)
[2020-06-09] MEDS: LACTOBACILLUS ACIDOPHILUS (FLORANEX) TAB PO SCH (20:24)
[2020-06-10] MEDS: PIPERACILLIN/TAZOBACTAM 3.375 GM in DEXTROSE 5% 100 ML IV SCH ×3 (01:00→17:28)
--- NOTE | 2020-06-10 06:04 | Surgery Progress Note ---
Date of Service June 10, 2020 Assessment & Plan (1) S/P laparoscopic cholecystectomy: No acute changes Low-grade fever yesterday but afebrile today Abdomen is nondistended Appears to be stable from a surgical standpoint Continue supportive care Results & Data Vital Signs (Past 12 Hours) Vital Signs Temp Pulse Pulse Resp BP BP Pulse Ox 06/10/20 03:00 37.2 C 103 H 20 166/87 H 92 06/10/20 00:25 104 H 06/09/20 22:56 37.3 C 100 H 20 152/76 H 90 06/09/20 19:31 37.6 C H 101 H 20 139/74 93 PG Care Time/CCT Total # of Minutes Spent Total Time Spent with Patient: Total time spent is greater than 50% in coordination of care (as documented) at patient's floor/unit and/or counseling patient: Coding Level of Care Code None Diagnoses S/P laparoscopic cholecystectomy Z90.49
[2020-06-10] MEDS: CHOLECALCIFEROL (VITAMIN D) 400 UNITS TABLET PO SCH (07:56)
[2020-06-10] MEDS: D5W AND NSS 1,000 ML IV SCH (07:56)
[2020-06-10] MEDS: ASPIRIN 81 MG ECTAB PO SCH (07:56)
--- NOTE | 2020-06-10 09:02 | Hospitalist Progress Note ---
Date of Service June 10, 2020 Assessment & Plan (1) Hypoxia: (2) Aspiration pneumonitis: Post op acute hypoxic respiratory failure secondary to aspiration. CTA did not show any PE. It did show RLL opacity, fluid filled esophagus, small hiatal hernia Aspiration likely in the setting of poor recovery post op as reported in H/P Aspiration precautions [employer]LO[employer] PROFESSIONAL recommendations noted Still has leukocytosis. Continue zosyn for now Discussed with GI Dr Hooper yesterday, will keep patient on clears and NPO PMN for possible scope tomorrow Wean oxygen as tolerated Incentive spirometry (3) Acute hypotension: Likely due to post op med effects and aspiration Resolved now Now getting hypertensive. Home amlodipine resumed Monitor blood pressure (4) Acute respiratory acidosis: Resolved (5) Elevated troponin: Troponin was elevated Likely due to demand EKG is NSR, no ischemic changes Echo reviewed. Essentially unremarkable (6) Prolonged QT interval: QTc was 510 on admission, normalized 451 Likely due to effects of anesthetic meds Avoid QT prolonging meds (7) S/P laparoscopic cholecystectomy: S/p lap [place] and ventral hernia repair Surgical site looks fine Pneumoperitoneum seen on CT as expected Passing flatus. Continue liquid diet and monitor Reported bladder fullness, frequency but only small amounts Bladder scan per RN 1012ml. Straight cath Monitor for urinary retention (8) DVT prophylaxis: Hep sq Admission and Anticipated Discharge Date Admission Date: June 08, 2020 Subjective Patient seen and examined. Reports feeling better today. Still reports dry cough. No shortness of breath, chest pain Reports soreness around surgical sites Denied any fevers, chills, nausea, vomiting. Initially denied any urinary symptoms during my eval but later reported bladder fullness and frequency to RN Physical Exam Constitutional: + well hydrated; no acute distress Eyes: PERRL, conjunctivae normal, anicteric sclerae ENMT: external ear and nose normal, oropharynx normal Respiratory: normal respiratory effort; no respiratory distress Auscultation: + diminished lung sounds Cardiovascular: RRR, no murmur, no edema Gastrointestinal (Abdomen): normal bowel sounds, soft, nontender, no hepatosplenomegaly Musculoskeletal: no cyanosis or clubbing, extremities motor strength 5/5 Neurologic: PERRL, EOMI, accommodation nl, no face palsy, no dysarthria Psychiatric: A+Ox3, euthymic affect Results & Data Results & Data ([place]) Vital Signs (Past 12 Hours) Vital Signs Temp Pulse Pulse Resp BP BP Pulse Ox 06/10/20 07:56 37.2 C 100 H 17 169/81 H 90 06/10/20 07:27 103 H 06/10/20 03:00 37.2 C 103 H 20 166/87 H 92 06/10/20 00:25 104 H 06/09/20 22:56 37.3 C 100 H 20 152/76 H 90 Laboratory Results Laboratory Results - last 24 hr 06/10/20 06/10/20 10:01 10:01 WBC 25.01 H RBC 4.21 Hgb 12.8 Hct 38.7 MCV 91.9 MCH 30.4 MCHC 33.1 RDW Std Deviation 46.9 H RDW Coeff of Reji 14.0 Plt Count 382 MPV 10.2 Sodium 132 L Potassium 3.5 Chloride 102 Carbon Dioxide 25 Anion Gap 5.0 BUN 7 Creatinine 1.03 Est Cr Clr Drug Dosing 44.0 Est GFR ( Amer) 62.0 Est GFR (Non-Af Amer) 53.5 BUN/Creatinine Ratio 7.1 L Glucose 111 H Calcium 9.0
[2020-06-10] MEDS: AMLODIPINE BESYLATE 5 MG TAB PO SCH (10:22)
[2020-06-10 10:23] LABS: Hematocrit (blood only) 38.7 % (37-47); Hemoglobin 12.8 g/dL (12.0-16.0); Mean Corpuscular Hemoglobin 30.4 pg (25-34); Mean Corpuscular Hgb Conc 33.1 g/dL (32-36); Mean Corpuscular Volume 91.9 fL (80-100); Mean Platelet Volume 10.2 fL (7.4-10.4); Platelet Count 382 K/uL (130-400); RDW Standard Deviation 46.9 fL (36.4-46.3); Red Blood Count 4.21 M/uL (4.2-5.4); White Blood Count 25.01 K/uL (4.8-10.8)
[2020-06-10 10:42] LABS: BUN Creatinine Ratio 7.1 (10-20); Est GFR (Non-African American) 53.5; Potassium 3.5 mmol/L (3.5-5.1)
--- NOTE | 2020-06-10 11:26 | Gastrointestinal Consultation ---
Date of Consultation June 10, 2020 History of Present Illness Attending Physician: Millicent Beltran MD HPI: 74 yo female admit 06/08 for persistent hypoxia, hypotension after elective outpt ventral hernia repair and [place]. On admission, underwent chest CT, report states fluid filled, mildly dilated esophagus. Speech eval did not show any aspiration. On my review, CT shows AF level in distal esophasgus, mild esophagus dilation and lower esophageal wall thick vs small HH. Of note, there appears to be a large amount of fluid in stomach. Of note, chest CT was done approximately 6 hours post surgery. Pt denies any prior h.o dysphagia or GERD, and has no h/o chronic largyngeal symptoms. ASSESSMENT/PLAN: Aspiration pneumonia, abnl esophageal appearance - The amount of fluid in her stomach on CTA of chest may suggest that her aspiration was due to an NPO violation, although she denies this; ddx may include gastroparesis or esophageal motility disorder. Recommed UGIS as outpt, which should be sufficeint to screen for esophageal obstruction, achalasia, or gastric outlet obstruction. Would prefer to defer endoscopy for now -- at present, her sats are in the low 90's on nasal cannula, and there is risk that anesthesia with endoscopy may lead to further lung injury. Allergies Allergy/AdvReac Type Severity Reaction Status Date / Time Sulfa (Sulfonamide Allergy Rash Verified 06/08/20 19:53 Antibiotics) Home Medications Home Medications Medication Instructions Recorded Confirmed Type Probiotic 3,000 mmu cells PO HS 11/16/19 06/08/20 History amlodipine 10 mg PO HS 11/16/19 06/08/20 History aspirin [Aspir-81] 81 mg PO QAM 11/16/19 06/08/20 History lisinopril 5 mg PO HS 11/16/19 06/08/20 History simvastatin 20 mg PO HS 11/16/19 06/08/20 History acetaminophen [Tylenol Extra 1,000 mg PO Q6H PRN 06/08/20 06/08/20 History Strength] cholecalciferol (vitamin D3) 20 mcg PO DAILY 06/08/20 06/08/20 History [Vitamin D3] Patient History Medical History Chronic kidney disease Stage III Hyperlipidemia Hypertension Surgical History History of bilateral tubal ligation Social History Smoking Status: Former smoker Second Hand Exposure: No; Hx Alcohol Use: Yes Alcohol type: wine Hx Substance Use: No Preferred Language: Belarusian Communication Ability: Effective Seo Consultant Required: No Beliefs That Will Affect Care: None Current Living Situation: Spouse Other Information That Helps Us Care for You: No Feels Safe at Home: Yes Safety Concerns: Feels Safe At This Time Physical Exam Physical Exam: pleasant, comfortable. Able to talk without SOB. Appears tired. Respiratory: CTA ant Cardiovascular: RRR, no murmur, no edema Gastrointestinal (Abdomen): normal bowel sounds, soft, nontender, no hepatosplenomegaly Musculoskeletal: no cyanosis or clubbing, extremities motor strength 5/5 Results & Data ([facility]) Vital Signs (Past 12 Hours) Vital Signs Temp Pulse Pulse Resp BP Pulse Ox 06/10/20 07:56 37.2 C 100 H 17 169/81 H 90 06/10/20 07:27 103 H 06/10/20 03:00 37.2 C 103 H 20 166/87 H 92 06/10/20 00:25 104 H
[2020-06-10 12:52] LABS: Appearance Urine Clear (Clear); Bacteria Urine Automated Negative (Negative); Bilirubin Urine Negative (Negative); Blood Urine 3+ (Negative); Cast Urine Automated 0 /lpf (0-5); Color Urine Yellow; Glucose Urine UA Negative (Negative); Ketones Urine Negative (Negative); Leukocyte Esterase Urine Negative (Negative); Nitrite Urine Negative (Negative); Protein Urine 1+ (Negative); RBC Urine Automated >30 /hpf (0-4); Specific Gravity Urine 1.016 (1.000-1.030); Urobilinogen Urine Negative (Negative)
[2020-06-10] MEDS: LACTOBACILLUS ACIDOPHILUS (FLORANEX) TAB PO SCH (20:01)
[2020-06-10] MEDS: HEPARIN SOD 5,000 UNIT/0.5 ML VIAL SQ SCH (20:01)
[2020-06-10] MEDS: SIMVASTATIN 20 MG TAB PO SCH (20:01)
[2020-06-11] MEDS: PIPERACILLIN/TAZOBACTAM 3.375 GM in DEXTROSE 5% 100 ML IV SCH ×3 (02:36→17:23)
[2020-06-11] MEDS: D5W AND NSS 1,000 ML IV SCH ×2 (04:09→23:59)
[2020-06-11 07:42] LABS: Hematocrit (blood only) 36.4 % (37-47); Hemoglobin 12.4 g/dL (12.0-16.0); Mean Corpuscular Hemoglobin 30.7 pg (25-34); Mean Corpuscular Hgb Conc 34.1 g/dL (32-36); Mean Corpuscular Volume 90.1 fL (80-100); Mean Platelet Volume 10.1 fL (7.4-10.4); Platelet Count 348 K/uL (130-400); RDW Coefficient of Variation 13.6 % (11.5-14.5); RDW Standard Deviation 45.1 fL (36.4-46.3); Red Blood Count 4.04 M/uL (4.2-5.4); White Blood Count 16.04 K/uL (4.8-10.8)
[2020-06-11 08:23] LABS: BUN Creatinine Ratio 8.7 (10-20); Calcium 8.5 mg/dl (8.5-10.1); Creatinine Clr Calc Pharmacy 56.9 ml/min; Est GFR (African American) 89.6; Est GFR (Non-African American) 77.3
[2020-06-11] MEDS: AMLODIPINE BESYLATE 5 MG TAB PO SCH (08:41)
[2020-06-11] MEDS: POTASSIUM CHLORIDE / WTR 10 MEQ/100 ML PLCT IV SCH ×4 (09:02→12:12)
--- NOTE | 2020-06-11 09:13 | Hospitalist Progress Note ---
Date of Service June 11, 2020 Assessment & Plan (1) Hypoxia: (2) Aspiration pneumonitis: Post op acute hypoxic respiratory failure secondary to aspiration. CTA did not show any PE. 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 EGD deferred to outpatient Advance diet with aspiration precautions Will wean oxygen as tolerated Incentive spirometry (3) Acute hypotension: Likely due to post op med effects and aspiration Resolved now Now getting hypertensive. Continue home amlodipine Resume lisinopril tonight (4) Acute respiratory acidosis: Resolved (5) Elevated troponin: Troponin was elevated Likely due to demand myocardial ischemia EKG is NSR, no ischemic changes Echo reviewed. Essentially unremarkable No chest pain or ACS equivalent (6) Prolonged QT interval: QTc was 510 on admission, normalized 451 Likely due to effects of anesthetic meds Avoid QT prolonging meds (7) S/P laparoscopic cholecystectomy: S/p lap [place] and ventral hernia repair Surgical site looks fine Pneumoperitoneum seen on CT as expected Passing flatus. Continue liquid diet and monitor Urinary retention Continued to retain after straight cath. Chen was placed Will plan to remove chen within the next 12-24h and reassess UA is unremarkable for UTI (8) DVT prophylaxis: Hep sq Admission and Anticipated Discharge Date Admission Date: June 08, 2020 Subjective Patient seen and examined Reports mild cough Denied any shortness of breath, chest pain, palpitation Reports abd discomfort has improved remarkable. Denied any nausea, vomiting. Developed urinary retention yesterday and chen was put in overnight Denied any dysuria prior to chen. Had bladder fullness, frequency with small vol urine. Physical Exam Constitutional: + well hydrated; no acute distress Eyes: PERRL, conjunctivae normal, anicteric sclerae ENMT: external ear and nose normal, oropharynx normal Respiratory: normal respiratory effort; no respiratory distress Auscultation: + diminished lung sounds; no crackles On nasal oxygen 4l/min Cardiovascular: RRR, no murmur, no edema Gastrointestinal (Abdomen): normal bowel sounds, soft, nontender, no hepatosplenomegaly Musculoskeletal: no cyanosis or clubbing, extremities motor strength 5/5 Neurologic: PERRL, EOMI, accommodation nl, no face palsy, no dysarthria Psychiatric: A+Ox3, euthymic affect Results & Data Results & Data ([facility]) Vital Signs (Past 12 Hours) Vital Signs Temp Pulse Pulse Resp BP BP Pulse Ox 06/11/20 07:20 36.9 C 92 H 18 146/84 H 92 06/11/20 07:11 89 06/11/20 03:00 36.7 C 92 H 18 145/81 H 93 06/11/20 00:03 37.2 C 98 H 20 144/81 H 93 06/10/20 23:48 94 H Laboratory Results Laboratory Results - last 24 hr 06/10/20 06/10/20 06/10/20 10:01 10:01 12:00 WBC 25.01 H RBC 4.21 Hgb 12.8 Hct 38.7 MCV 91.9 MCH 30.4 MCHC 33.1 RDW Std Deviation 46.9 H RDW Coeff of Reji 14.0 Plt Count 382 MPV 10.2 Sodium 132 L Potassium 3.5 Chloride 102 Carbon Dioxide 25 Anion Gap 5.0 BUN 7 Creatinine 1.03 Est Cr Clr Drug Dosing 44.0 Est GFR ( Amer) 62.0 Est GFR (Non-Af Amer) 53.5 BUN/Creatinine Ratio 7.1 L Glucose 111 H Calcium 9.0 Urine Color Urine Appearance Urine pH Ur Specific [place] Urine Protein Urine Glucose (UA) Urine Ketones Urine Blood Urine Nitrite Urine Bilirubin Urine Urobilinogen Ur Leukocyte Esterase Urine WBC (Auto) Urine RBC (Auto) U Hyaline Cast (Auto) U Epithel Cells (Auto) Urine Bacteria (Auto) Ur Random Uric Acid 30.6 Nasal Screen MRSA (PCR) 06/10/20 06/10/20 06/11/20 12:00 12:00 07:02 WBC RBC Hgb Hct MCV MCH MCHC RDW Std Deviation RDW Coeff of Reji Plt Count MPV Sodium 132 L Potassium 3.0 L Chloride 101 Carbon Dioxide 24 Anion Gap 7.0 BUN 7 Creatinine 0.76 Est Cr Clr Drug Dosing 56.9 Est GFR ( Amer) 89.6 Est GFR (Non-Af Amer) 77.3 BUN/Creatinine Ratio 8.7 L Glucose 112 H Calcium 8.5 Urine Color Yellow Urine Appearance Clear Urine pH 7.0 Ur Specific [place] 1.016 Urine Protein 1+ H Urine Glucose (UA) Negative Urine Ketones Negative Urine Blood 3+ H Urine Nitrite Negative Urine Bilirubin Negative Urine Urobilinogen Negative Ur Leukocyte Esterase Negative Urine WBC (Auto) 1-5 Urine RBC (Auto) >30 H U Hyaline Cast (Auto) 0 U Epithel Cells (Auto) 10-20 H Urine Bacteria (Auto) Negative Ur Random Uric Acid Nasal Screen MRSA (PCR) Negative 06/11/20 07:02 WBC 16.04 H RBC 4.04 L Hgb 12.4 Hct 36.4 L MCV 90.1 MCH 30.7 MCHC 34.1 RDW Std Deviation 45.1 RDW Coeff of Reji 13.6 Plt Count 348 MPV 10.1 Sodium Potassium Chloride Carbon Dioxide Anion Gap BUN Creatinine Est Cr Clr Drug Dosing Est GFR ( Amer) Est GFR (Non-Af Amer) BUN/Creatinine Ratio Glucose Calcium Urine Color Urine Appearance Urine pH Ur Specific [place] Urine Protein Urine Glucose (UA) Urine Ketones Urine Blood Urine Nitrite Urine Bilirubin Urine Urobilinogen Ur Leukocyte Esterase Urine WBC (Auto) Urine RBC (Auto) U Hyaline Cast (Auto) U Epithel Cells (Auto) Urine Bacteria (Auto) Ur Random Uric Acid Nasal Screen MRSA (PCR)
--- NOTE | 2020-06-11 09:35 | Gastroenterology Progress Note ---
Date of Service June 11, 2020 Assessment & Plan (1) Aspiration pneumonia: (2) Abnormal CT scan, esophagus: Pt is a 74 y/o female admitted for suspected aspiration pneumonia. GI evaluated for fluid seen in esophagus and hiatal hernia in CTA chest. Endoscopy previously deferred given low O2 sat while on O2 per NC. Oxygenation improved today, though she is at higher risk for aspiration pneumonia under anesthesia. She denies any dysphagia, odynophagia, reflux, heartburn, abd pain, n/v - Would defer further workup (EGD +/- UGI series) in outpt setting - Start PPI BID - FL diet, advance as tolerated - Recall Gi prn Admission and Anticipated Discharge Date Admission Date: June 08, 2020 Supervising Physician Co-Signing Physician Notes Attending attestation I have seen, examined this patient, and agree with the findings and above by our mid-level provider ANTWON Butler, with the following additions: - patient with an infiltrate an oxygen requirement, swallowing without any esophageal complaints. Would continue current care and will arrange for short interval outpatient EGD. In the interim please provide twice daily PPI Subjective Pt denies CP, SOB, abd pain, n/v. O2 sat 96% on 2L NC. She has been NPO, anticipating EGD eval today Review of Systems Review of Systems: All systems reviewed & are unremarkable except as noted in HPI & below Physical Exam Constitutional: WD/WN, vitals as above well groomed, cooperative and comfortable Eyes: PERRL, conjunctivae normal, anicteric sclerae ENMT: external ear and nose normal, oropharynx normal Respiratory: normal respiratory effort, lungs clear to auscultation Cardiovascular: RRR, no murmur, no edema Gastrointestinal (Abdomen): normal bowel sounds, soft, nontender, no hepatosplenomegaly Skin: no rashes, warm and dry Psychiatric: A+Ox3, euthymic affect Lymphatic: no lymphedema Results & Data ([facility]) Vital Signs (Past 12 Hours) Vital Signs Temp Pulse Pulse Resp BP BP Pulse Ox 06/11/20 07:20 36.9 C 92 H 18 146/84 H 92 06/11/20 07:11 89 06/11/20 03:00 36.7 C 92 H 18 145/81 H 93 06/11/20 00:03 37.2 C 98 H 20 144/81 H 93 06/10/20 23:48 94 H (1) Aspiration pneumonia Aspiration pneumonia type: unspecified Laterality: bilateral Lung location: lower lobe of lung Qualified Code(s): J69.0 - Pneumonitis due to inhalation of food and vomit
[2020-06-11] MEDS: HEPARIN SOD 5,000 UNIT/0.5 ML VIAL SQ SCH ×2 (10:06→21:12)
[2020-06-11] MEDS: CHOLECALCIFEROL (VITAMIN D) 400 UNITS TABLET PO SCH (10:06)
[2020-06-11] MEDS: ASPIRIN 81 MG ECTAB PO SCH (11:14)
--- NOTE | 2020-06-11 11:23 | Surgery Progress Note ---
Date of Service June 11, 2020 Assessment & Plan (1) S/P laparoscopic cholecystectomy: POD # 3 s/p laparoscopic cholecystectomy and ventral hernia repair at [facility] - afebrile, improvement of leukocytosis - no abdominal pain, n/v - tolerating full liquids Plan: Doing fine post-op, no immediate postop abdominal concerns Her breathing is improved and now only on 2liters of o2 via nc advance diet as tolerated outpatient GI follow-up with EGD for dilated/fluid filled esophagus encouraged ambulation continue incentive spirometry, would recommend continued incentive spirometry at home Carreon management per medicine Follow-up with Dr. Conde as already scheduled, advised to call office with any abdominal/surgical concerns and can be seen sooner. Continue medical management Discussed with Dr. Conde who agrees with above. Subjective feeling better today oxygen saturations are better today, breathing is better as well no abdominal pain, nausea or vomiting but belching alot no flatus or bowel movement tolerated full liquids okay has not been moving much Physical Exam Constitutional: WD/WN, vitals as above not ill appearing Respiratory: normal respiratory effort; no respiratory distress O2 via nasal cannula Gastrointestinal (Abdomen): Inspection/Auscultation: abdomen normal to inspection; abdomen not distended Percussion/Palpation: abdomen soft; abdomen nontender, no guarding and abdomen not rigid Skin: no rashes, warm and dry + ecchymosis (LLQ near hernia repair site) and + incision (covered with steri strips, intact) Psychiatric: A+Ox3, euthymic affect Results & Data Vital Signs (Past 12 Hours) Vital Signs Temp Pulse Pulse Resp BP BP Pulse Ox 06/11/20 07:20 36.9 C 92 H 18 146/84 H 92 06/11/20 07:11 89 06/11/20 03:00 36.7 C 92 H 18 145/81 H 93 06/11/20 00:03 37.2 C 98 H 20 144/81 H 93 06/10/20 23:48 94 H Laboratory Results 06/11/20 06/11/20 06/10/20 Range/Units 07:02 07:02 12:00 WBC 16.04 H (4.8-10.8) K/uL RBC 4.04 L (4.2-5.4) M/uL Hgb 12.4 (12.0-16.0) g/dL Hct 36.4 L (37-47) % MCV 90.1 (80-100) fL MCH 30.7 (25-34) pg MCHC 34.1 (32-36) g/dL RDW Std Deviation 45.1 (36.4-46.3) fL RDW Coeff of Reji 13.6 (11.5-14.5) % Plt Count 348 (130-400) K/uL MPV 10.1 (7.4-10.4) fL Sodium 132 L (136-145) mmol/L Potassium 3.0 L (3.5-5.1) mmol/L Chloride 101 (98-107) mmol/L Carbon Dioxide 24 (21-32) mmol/L Anion Gap 7.0 (3-11) BUN 7 (7-18) mg/dl Creatinine 0.76 (0.6-1.2) mg/dl Est Cr Clr Drug Dosing 56.9 ml/min Est GFR ( Amer) 89.6 Est GFR (Non-Af Amer) 77.3 BUN/Creatinine Ratio 8.7 L (10-20) Glucose 112 H (70-99) mg/dl Calcium 8.5 (8.5-10.1) mg/dl Urine Color Yellow Urine Appearance Clear (Clear) Urine pH 7.0 (4.5-7.5) Ur Specific [place] 1.016 (1.000-1.030) Urine Protein 1+ H (Negative) Urine Glucose (UA) Negative (Negative) Urine Ketones Negative (Negative) Urine Blood 3+ H (Negative) Urine Nitrite Negative (Negative) Urine Bilirubin Negative (Negative) Urine Urobilinogen Negative (Negative) Ur Leukocyte Esterase Negative (Negative) Urine WBC (Auto) 1-5 (0-5) /hpf Urine RBC (Auto) >30 H (0-4) /hpf U Hyaline Cast (Auto) 0 (0-5) /lpf U Epithel Cells (Auto) 10-20 H (0-5) /lpf Urine Bacteria (Auto) Negative (Negative) Ur Random Uric Acid mg/dl Nasal Screen MRSA (PCR) (Negative) 06/10/20 06/10/20 Range/Units 12:00 12:00 WBC (4.8-10.8) K/uL RBC (4.2-5.4) M/uL Hgb (12.0-16.0) g/dL Hct (37-47) % MCV (80-100) fL MCH (25-34) pg MCHC (32-36) g/dL RDW Std Deviation (36.4-46.3) fL RDW Coeff of Reji (11.5-14.5) % Plt Count (130-400) K/uL MPV (7.4-10.4) fL Sodium (136-145) mmol/L Potassium (3.5-5.1) mmol/L Chloride (98-107) mmol/L Carbon Dioxide (21-32) mmol/L Anion Gap (3-11) BUN (7-18) mg/dl Creatinine (0.6-1.2) mg/dl Est Cr Clr Drug Dosing ml/min Est GFR ( Amer) Est GFR (Non-Af Amer) BUN/Creatinine Ratio (10-20) Glucose (70-99) mg/dl Calcium (8.5-10.1) mg/dl Urine Color Urine Appearance (Clear) Urine pH (4.5-7.5) Ur Specific [place] (1.000-1.030) Urine Protein (Negative) Urine Glucose (UA) (Negative) Urine Ketones (Negative) Urine Blood (Negative) Urine Nitrite (Negative) Urine Bilirubin (Negative) Urine Urobilinogen (Negative) Ur Leukocyte Esterase (Negative) Urine WBC (Auto) (0-5) /hpf Urine RBC (Auto) (0-4) /hpf U Hyaline Cast (Auto) (0-5) /lpf U Epithel Cells (Auto) (0-5) /lpf Urine Bacteria (Auto) (Negative) Ur Random Uric Acid 30.6 mg/dl Nasal Screen MRSA (PCR) Negative (Negative)
[2020-06-11] MEDS: PANTOprazole 40 MG TAB PO SCH (21:11)
[2020-06-11] MEDS: LACTOBACILLUS ACIDOPHILUS (FLORANEX) TAB PO SCH (21:11)
[2020-06-11] MEDS: lisinopriL 5 MG TAB PO SCH (21:11)
[2020-06-11] MEDS: SIMVASTATIN 20 MG TAB PO SCH (21:12)
[2020-06-12] MEDS: PIPERACILLIN/TAZOBACTAM 3.375 GM in DEXTROSE 5% 100 ML IV SCH ×3 (02:38→18:18)
[2020-06-12 07:27] LABS: Hematocrit (blood only) 35.9 % (37-47); Hemoglobin 11.8 g/dL (12.0-16.0); Mean Corpuscular Hemoglobin 29.6 pg (25-34); Mean Corpuscular Hgb Conc 32.9 g/dL (32-36); Mean Corpuscular Volume 90.2 fL (80-100); Mean Platelet Volume 10.2 fL (7.4-10.4); Platelet Count 385 K/uL (130-400); RDW Coefficient of Variation 13.7 % (11.5-14.5); RDW Standard Deviation 45.8 fL (36.4-46.3); Red Blood Count 3.98 M/uL (4.2-5.4); White Blood Count 12.21 K/uL (4.8-10.8)
[2020-06-12 07:53] LABS: BUN Creatinine Ratio 9.9 (10-20); Calcium 8.2 mg/dl (8.5-10.1); Creatinine Clr Calc Pharmacy 57.7 ml/min; Est GFR (African American) 88.2; Est GFR (Non-African American) 76.1; Potassium 3.1 mmol/L (3.5-5.1)
[2020-06-12] MEDS: PANTOprazole 40 MG TAB PO SCH ×2 (08:56→20:49)
[2020-06-12] MEDS: CHOLECALCIFEROL (VITAMIN D) 400 UNITS TABLET PO SCH (08:56)
[2020-06-12] MEDS: ASPIRIN 81 MG ECTAB PO SCH (08:56)
[2020-06-12] MEDS: HEPARIN SOD 5,000 UNIT/0.5 ML VIAL SQ SCH ×2 (08:56→20:49)
[2020-06-12] MEDS: AMLODIPINE BESYLATE 5 MG TAB PO SCH (08:56)
[2020-06-12] MEDS ORDERED: POTASSIUM CHLORIDE 20 MEQ/15 ML UDC PO STA (10:09)
--- NOTE | 2020-06-12 10:45 | Fluoroscopy Report ---
FL barium swallow CLINICAL HISTORY: Fluid-filled esophagus. COMPARISON STUDY: No previous studies for comparison. Fluoroscopy time: 1.3 minutes. Number of fluoroscopic images: 17. FINDINGS: This exam was technically difficult. A small hiatal hernia was noted. There was mild esopha geal dysmotility. No reflux was elicited. No esophageal mass was identified although mucosal detail i s diminished on this examination. There was persistent holdup of a 13 mm barium tablet within the dis kyle esophagus. Slight irregularity of the distal esophagus is noted. IMPRESSION: 1. Slight irregularity of the distal esophagus with persistent hold up of a 13 mm barium tablet withi n the distal esophagus. No definite esophageal lesion identified however GI consultation for conside ration for endoscopy is recommended to exclude a mucosal lesion. 2. Small hiatal hernia. 3. Mild esophageal dysmotility. 3. Technically difficult exam. ACT 112: Positive. There are findings on this exam that require communication between the performing entity and the patient following Patient Test Result Information Act ([place] Act 112) guidelines. Electronically signed by: Asher Butler M.D. 06/12/2020 10:44 AM
--- NOTE | 2020-06-12 16:06 | Hospitalist Progress Note ---
Date of Service June 12, 2020 Assessment & Plan (1) Hypoxia: (2) Aspiration pneumonitis: Post op acute hypoxic respiratory failure secondary to aspiration. CTA did not show any PE. It did show RLL opacity, fluid filled esophagus, small hiatal hernia Aspiration likely in the setting of poor recovery post op as reported in H/P Aspiration precautions MEDICAL VOUCHER CLERK recommendations noted Leukocytosis is improving 25k -->12k Continue zosyn for now. Plan to transition to po antibiotics on discharge to complete therapy Patient was evaluated by GI. Was initially planned for endoscopy. However, this was deferred to outpatient. Plan to discharge on po ppi per GI recs Barium swallow today showed mild esophageal dysmotility and Slight irregularity of the distal esophagus with persistent hold up of a 13 mm barium tablet within the distal esophagus Discussed with MEDICAL VOUCHER CLERK Patient's diet changed to soft easy to chew, slippery diet. Patient can have large pills broken or crushed for easy Educated on aspiration precautions Oxygen was successfully weaned off today. Ambulatory pulse oximetry did not show any need for oxygen (3) Acute hypotension: Likely due to post op med effects and aspiration Resolved now BP is controlled now Continue home lisinopril and amlodipine (4) Acute respiratory acidosis: Resolved (5) Elevated troponin: Troponin was elevated Likely due to demand myocardial ischemia EKG is NSR, no ischemic changes Echo reviewed. Essentially unremarkable No chest pain or ACS equivalent (6) Prolonged QT interval: QTc was 510 on admission, normalized 451 Likely due to effects of anesthetic meds Avoid QT prolonging meds (7) S/P laparoscopic cholecystectomy: S/p lap [place] and ventral hernia repair Surgical site looks fine Good recovery Surgery has been on board (8) Urinary retention: Developed urinary retention 2nights ago and required chen after failed void post straight cath Chen was removed this AM Patient has not voided Bladder scan this afternoon by RN was 211cc Encourage po fluid intake Get bladder/ureter/kidney USS to ass Appreciate urology eval UA is unremarkable for UTI (9) DVT prophylaxis: Hep sq Admission and Anticipated Discharge Date Admission Date: June 08, 2020 Subjective Patient seen and examined Reports mild cough. No chest pain, shortness of breath No chest pain Reports abd pain has resolved Denied nausea Patient had acute urinary retention and required chen placement Physical Exam Constitutional: + well hydrated; no acute distress Eyes: PERRL, conjunctivae normal, anicteric sclerae ENMT: external ear and nose normal, oropharynx normal Respiratory: normal respiratory effort; no respiratory distress Aus cultation: + diminished lung sounds; no crackles Cardiovascular: RRR, no murmur, no edema Gastrointestinal (Abdomen): normal bowel sounds, soft, nontender, no hepatosplenomegaly Musculoskeletal: no cyanosis or clubbing, extremities motor strength 5/5 Neurologic: PERRL, EOMI, accommodation nl, no face palsy, no dysarthria Psychiatric: A+Ox3, euthymic affect Results & Data Results & Data ([facility]) Vital Signs (Past 12 Hours) Vital Signs Temp Pulse Pulse Pulse Pulse Pulse Pulse 06/12/20 15:53 37.1 C 95 H 06/12/20 15:50 89 06/12/20 11:12 37.2 C 87 06/12/20 09:39 100 H 97 H 81 06/12/20 08:00 77 06/12/20 07:14 37.0 C 85 06/12/20 04:45 36.8 C 86 Resp Resp Resp Resp BP BP Pulse Ox 06/12/20 15:53 18 115/75 98 06/12/20 15:50 06/12/20 11:12 18 106/71 95 06/12/20 09:39 20 16 16 06/12/20 08:00 06/12/20 07:14 18 145/78 H 94 06/12/20 04:45 19 142/80 H 92 Pulse Ox Pulse Ox Pulse Ox 06/12/20 15:53 06/12/20 15:50 06/12/20 11:12 06/12/20 09:39 90 93 94 06/12/20 08:00 06/12/20 07:14 06/12/20 04:45 Laboratory Results Laboratory Results - last 24 hr 06/12/20 06/12/20 06:54 06:54 WBC 12.21 H RBC 3.98 L Hgb 11.8 L Hct 35.9 L MCV 90.2 MCH 29.6 MCHC 32.9 RDW Std Deviation 45.8 RDW Coeff of Reji 13.7 Plt Count 385 MPV 10.2 Sodium 138 Potassium 3.1 L Chloride 108 H Carbon Dioxide 25 Anion Gap 5.0 BUN 8 Creatinine 0.77 Est Cr Clr Drug Dosing 57.7 Est GFR ( Amer) 88.2 Est GFR (Non-Af Amer) 76.1 BUN/Creatinine Ratio 9.9 L Glucose 111 H Calcium 8.2 L
[2020-06-12] MEDS ORDERED: TAMSULOSIN HCL 0.4 MG CAP PO ONE (17:12)
[2020-06-12] MEDS ORDERED: POLYETHYLENE (MIRALAX) 17 GM PACK PO ONE (17:15)
[2020-06-12] MEDS: D5W AND NSS 1,000 ML IV SCH (18:21)
[2020-06-12] MEDS: LACTOBACILLUS ACIDOPHILUS (FLORANEX) TAB PO SCH (20:48)
[2020-06-12] MEDS: lisinopriL 5 MG TAB PO SCH (20:49)
[2020-06-12] MEDS: SIMVASTATIN 20 MG TAB PO SCH (20:49)
[2020-06-13] MEDS: PIPERACILLIN/TAZOBACTAM 3.375 GM in DEXTROSE 5% 100 ML IV SCH ×2 (01:34→09:36)
[2020-06-13 06:22] LABS: Hematocrit (blood only) 34.6 % (37-47); Hemoglobin 11.5 g/dL (12.0-16.0); Mean Corpuscular Hgb Conc 33.2 g/dL (32-36); Mean Corpuscular Volume 90.3 fL (80-100); Mean Platelet Volume 9.9 fL (7.4-10.4); Platelet Count 385 K/uL (130-400); RDW Coefficient of Variation 13.9 % (11.5-14.5); RDW Standard Deviation 46.3 fL (36.4-46.3); Red Blood Count 3.83 M/uL (4.2-5.4); White Blood Count 11.41 K/uL (4.8-10.8)
[2020-06-13 06:41] LABS: BUN Creatinine Ratio 8.6 (10-20); Calcium 8.1 mg/dl (8.5-10.1); Est GFR (African American) 68.4; Potassium 3.6 mmol/L (3.5-5.1)
--- NOTE | 2020-06-13 06:56 | Ultrasound Report ---
US renal/blad retro comp HISTORY: Renal insufficiency Acute urinary retention COMPARISON: None. FINDINGS: Right kidney: Maximum dimension 9.7 cm. No evidence for hydronephrosis. Trace amount of perinephric f luid. Normal corticomedullary differentiation and cortical thickness. Left kidney: Maximum dimension 9.5 cm. No evidence for hydronephrosis. Mild cortical scarring Bladder: Distended with a maximum volume of 900 cc. IMPRESSION: 1. Mild cortical scarring bilaterally. 2. No evidence for hydronephrosis. 3. Trace amount of right perinephric fluid. 4. Distended bladder. ACT 112: Negative or not required by law. The above report was generated using voice recognition software. It may contain grammatical, syntax or spelling errors. Electronically signed by: Chucky Fay M.D. 06/13/2020 6:55 AM
[2020-06-13] MEDS: PANTOprazole 40 MG TAB PO SCH (08:36)
[2020-06-13] MEDS: CHOLECALCIFEROL (VITAMIN D) 400 UNITS TABLET PO SCH (08:37)
[2020-06-13] MEDS: HEPARIN SOD 5,000 UNIT/0.5 ML VIAL SQ SCH (08:38)
[2020-06-13] MEDS: AMLODIPINE BESYLATE 5 MG TAB PO SCH (08:38)
[2020-06-13] MEDS: ASPIRIN 81 MG ECTAB PO SCH (08:38)
[2020-06-13] MEDS ORDERED: POLYETHYLENE (MIRALAX) 17 GM PACK PO SCH (09:00)
--- NOTE | 2020-06-13 09:23 | Urology Consultation ---
Date of Consultation June 13, 2020 Assessment & Plan (1) Urinary retention: 74 year-old female patient admitted 06/08/20 status post elective laparoscopic cholecystectomy and ventral hernia repair secondary to aspiration pneumonitis and acute hypotension. -Post-procedure, patient developed acute urinary retention - likely multifactorial. -Discussed possible causes of urinary retention with patient. -Due to continued elevated post void residuals, recommend insertion of indwelling chen catheter, order placed. -Recommend maintaining catheter for total of 7-10 days to allow max drainage and bladder rest. -Discussed use of Tamsulosin, will hold given postop hypotension. -Will plan for follow-up with urology service in 7-10 days for voiding trial and office visit. -Patient in agreement with above plan and will call with any catheter difficulties or changes in symptoms. -Okay for discharge home from perspective with chen catheter. Thank you for allowing us to participate in the acute care of Mrs. Shell. Please reconsult us with additional questions, concerns or changes in patient status. History of Present Illness Reason for Consultation: Acute urinary retention Attending Physician: Jocelyn Marti MD History of Present Illness 74 year-old female patient, with past medical history of hypertension, history of tobacco abuse, history of hyperlipidemia, history of osteoporosis who was admitted 06/08/20 status post elective laparoscopic cholecystectomy and ventral hernia repair secondary to aspiration pneumonitis and acute hypotension. She then developed acute urinary retention requiring chen catheter placement. Chen catheter was removed and patient has had continued elevated PVRs requiring i ntermittent straight catheterization. Urology was consulted due to acute urinary retention. She has not followed with urology service in the past. Chart review: Afebrile Wbc 11.41 (previously 12.21) Hgb 11.5 Creatinine 0.95 Bladder scans reviewed - ranging from 211 ml to 1010 ml. Most recent straight cath was this morning at 0200 for 625 ml. No urine culture in chart, however patient has been receiving IV antibiotics. Patient examined at bedside this morning. She reports she is feeling well. States he has not been able to urinate adequate amounts since her procedure. Did have a hysterectomy in December of this year and she reports she also had difficulty urinating at that time as well. Only has been going small amounts in between intermittent catheterization. No current dysuria or hematuria when she does void. Does at times feel bladder discomfort. She states she normally does not have any urinary dysfunction at her baseline. She has no recent dysuria or hematuria. Denies frequency or urgency. Before her procedure, she reports she emptied her bladder well without urinary frequency or urgency. Denies dizziness. Denies fevers or chills. No recent nausea or vomiting. She is currently not on any medications for her urinary pattern. She would like to go home today. Denies additional urologic concerns. Allergies Allergy/AdvReac Type Severity Reaction Status Date / Time Sulfa (Sulfonamide Allergy Rash Verified 06/08/20 19:53 Antibiotics) Home Medications Home Medications Medication Instructions Recorded Confirmed Type Probiotic 3,000 mmu cells PO HS 11/16/19 06/08/20 History amlodipine 10 mg PO HS 11/16/19 06/08/20 History aspirin [Aspir-81] 81 mg PO QAM 11/16/19 06/08/20 History lisinopril 5 mg PO HS 11/16/19 06/08/20 History simvastatin 20 mg PO HS 11/16/19 06/08/20 History acetaminophen [Tylenol Extra 1,000 mg PO Q6H PRN 06/08/20 06/08/20 History Strength] cholecalciferol (vitamin D3) 20 mcg PO DAILY 06/08/20 06/08/20 History [Vitamin D3] amoxicillin-pot clavulanate 1 tab PO BID 3 Days #6 tab 06/12/20 Rx [Augmentin] pantoprazole 40 mg PO BID 30 Days #60 tab 06/12/20 Rx Patient History Medical History Chronic kidney disease Stage III Hyperlipidemia Hypertension Surgical History History of bilateral tubal ligation Social History Smoking Status: Former smoker Second Hand Exposure: No; Hx Alcohol Use: Yes Alcohol type: wine Hx Substance Use: No Preferred Language: Indonesian Communication Ability: Effective 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 Beliefs That Will Affect Care: None Current Living Situation: Spouse Other Information That Helps Us Care for You: No Feels Safe at Home: Yes Safety Concerns: Feels Safe At This Time Review of Systems Constitutional: as per Subjective / HPI; no fever and no chills Respiratory: no dyspnea Gastrointestinal: as per Subjective / HPI; no nausea and no vomiting Genitourinary: as per Subjective / HPI Neurologic: as per Subjective / HPI Endocrine: no polydipsia and no polyuria Physical Exam Constitutional: well developed and well nourished; no acute distress and not ill appearing ENMT: Ears: no external ear abnormality Nose: no external nose abnormality Neck: normal visual inspection and trachea midline Respiratory: normal respiratory effort and able to speak in complete sentences; no respiratory distress and no audible wheezes Musculoskeletal: Moves all extremities without difficulty. Skin: No visible rashes, lesions, or wounds noted. Neurologic: moves all extremities and awake Psychiatric: Orientation: alert, oriented x 3 and cooperative Affect: euthymic affect Genitourinary: no CVA tenderness Results & Data ([facility]) Vital Signs (Past 12 Hours) Vital Signs Temp Pulse Pulse Pulse Resp BP Pulse Ox 06/13/20 07:10 37.1 C 85 16 122/73 92 06/13/20 07:07 82 06/13/20 04:00 37.2 C 89 18 130/77 90 06/12/20 22:20 90 PG Care Time/CCT Total # of Minutes Spent Total Time Spent with Patient: Total time spent is greater than 50% in coordination of care (as documented) at patient's floor/unit and/or counseling patient: Coding Level of Care Code 85431 Initial Inpt Care Lvl 2 Diagnoses Urinary retention R33.9
--- NOTE | 2020-06-13 11:02 | Hospitalist Progress Note ---
Date of Service June 13, 2020 Assessment & Plan (1) Hypoxia: (2) Aspiration pneumonitis: Post op acute hypoxic respiratory failure secondary to aspiration. CTA did not show any PE. It did show RLL opacity, fluid filled esophagus, small hiatal hernia Aspiration likely in the setting of poor recovery post op as reported in H/P Aspiration precautions HOSPITAL ADMISSIONS CLERK recommendations noted Leukocytosis is improving 25k -->12k Currently on Zosyn for now. Will transition to oral Augmentin antibiotics on discharge to complete therapy Patient was evaluated by GI. Was initially planned for endoscopy. However, this was deferred to outpatient. Plan to discharge on po ppi per GI recs Barium swallow today showed mild esophageal dysmotility and Slight irregularity of the distal esophagus with persistent hold up of a 13 mm barium tablet within the distal esophagus Discussed with HOSPITAL ADMISSIONS CLERK Patient's diet changed to soft easy to chew, slippery diet. Patient can have large pills broken or crushed for easy Educated on aspiration precautions Oxygen was successfully weaned off today. Ambulatory pulse oximetry did not show any need for oxygen Saturated well on RA (3) Acute hypotension: Likely due to post op med effects and aspiration Resolved now BP is controlled now Continue home lisinopril and amlodipine (4) Acute respiratory acidosis: Resolved (5) Elevated troponin: Troponin was elevated Likely due to demand myocardial ischemia EKG is NSR, no ischemic changes No chest pain or ACS equivalent Echo showed normal LV chamber size with mild concentric LVH hyperdynamic LV systolic function with ejection fraction more than 70%. No segmental left ventricle wall motion abnormality are noted. Grade 1 diastolic dysfunction. No significant valvular pathology (6) Prolonged QT interval: QTc was 510 on admission, normalized 451 Likely due to effects of anesthetic meds Avoid QT prolonging meds (7) S/P laparoscopic cholecystectomy: S/p lap [place] and ventral hernia repair Surgical site looks fine Good recovery Surgery has been on board Diet advanced as tolerated Stable (8) Urinary retention: Developed urinary retention 2nights ago and required chen after failed void post straight cath Patient did not void after chen was removed Renal u/s showed mild cortical scarring bilaterally. No evidence for hydronephrosis. Trace amount of right perinephric fluid. Distended bladder. Encourage po fluid intake Urology on board recommended to keep chen cath ob discharge for a total of 7-10 days to allow max drainage and bladder rest. Follow-up with urology service in 7-10 days for voiding trial and office visit. OK from urology standpoint to discharge home today (9) DVT prophylaxis: Hep sq Admission and Anticipated Discharge Date Admission Date: June 08, 2020 Subjective Pt was seen and examined Sitting in bed with no distress Pt said that she feels fine She is very anxious to go home today She said that her breathing is back to normal She said that she will be a grandmother today She had a 15 beat of VTach in the middle of the night Denies any chest pain, palpitation, dizziness and SOB Physical Exam Physical Exam: General- No acute distress Head- atraumatic Eyes- PERRL, EOMI, ENT- oropharynx clear Neck- supple, no JVD Lungs- clear to auscultation Heart- regular rhythm; no murmur Abdomen- normal bowel sounds, soft, nontender Extremities- no calf tenderness Neuro- alert, oriented x 3; PERRL, EOMI; no facial palsy; no dysarthria Skin- warm & dry Results & Data Results & Data ([facility]) Vital Signs (Past 12 Hours) Vital Signs Temp Pulse Pulse Pulse Resp BP BP 06/13/20 10:52 37.1 C 89 85 16 145/78 H 122/73 06/13/20 07:10 37.1 C 85 16 122/73 06/13/20 07:07 82 06/13/20 04:00 37.2 C 89 18 130/77 Pulse Ox 06/13/20 10:52 92 06/13/20 07:10 92 06/13/20 07:07 06/13/20 04:00 90
[2020-06-13] MEDS ORDERED: POTASSIUM CHLORIDE PWD 20 MEQ PACK PO ONE (11:15)
[2020-06-13] MEDS: D5W AND NSS 1,000 ML IV SCH (14:15)
[2020-06-13] MEDS ORDERED: AMOXICILLIN/CLAVULANATE 875 MG TAB PO SCH (17:00)
--- NOTE | 2020-06-15 08:52 | Discharge Summary ---
Date of Service June 13, 2020 Admission HPI Per Admitting Provider CHIEF COMPLAINT: Hypotension postop. HISTORY OF PRESENT ILLNESS: This is a 74-year-old female with past medical history significant for hypertension, history of tobacco abuse, history of hyperlipidemia, history of osteoporosis, status post elective laparoscopic cholecystectomy and ventral hernia repair. Post procedure, the patient was difficult to arouse. She was hypotensive and hypoxic. The patient had general anesthesia for the procedure. She also received phenylephrine and ephedrine and push dose pressors. She also received neostigmine, acetaminophen, Sugammadex, and glycopyrrolate, and she received a fluid bolus. Because of ongoing hypotension, hypoxia, she was sent to the ER for further evaluation. In the ER, currently she is alert and awake and oriented. Her vitals are stable, but her white count was 21,000. Venous blood gas shows pH of 7.24, potassium was 3.3, troponin came as 0.13. Chest x-ray showed possible mild pulmonary edema. CTA of the chest was done which was negative for PE, but showed possible aspiration pneumonitis. EKG shows prolonged QT of 510. Currently, the patient denies any headache. No blurred visions, no earache, no runny nose, has some sore throat from the tube. Denies any chest pain. The patient says she could not take a deep breath because it hurts at the procedure site and it causes some mild shortness of breath. She has some gas pain and also has some right shoulder pain and she is sore over the surgical site. She moved her bowels in the morning, which was normal. She moved her bladder in the ER. Not passing gas down yet. No rash seen. No swelling in the legs. Feeling cold, but denies any fevers. No cough. Admission Exam Per Admitting Provider GENERAL: The patient is of moderate build, not in acute distress. VITAL SIGNS: Temperature 36.7, pulse 68, respiratory rate 18, blood pressure when she came in was 85/55, currently 114/62, oxygen 90% on 3 liters. HEENT: No pallor, no icterus. Pupils equal, round, and reactive to light. Oral mucosa moist. NECK: No JVD, no neck masses seen. CARDIOVASCULAR: S1, S2 heard, regular rate and rhythm, no murmur, no gallop. RESPIRATORY SYSTEM: Normal AP diameter. No accessory muscle use. No wheezing, no crackles. ABDOMEN: Soft, bowel sounds very sluggish. Surgical sites with dressing. No drainage seen. CENTRAL NERVOUS SYSTEM: Cranial nerves II-XII grossly intact. Nonfocal. EXTREMITIES: No edema, no erythema. Principal Diagnosis Hypoxia: Aspiration pneumonitis: Acute hypotension: Acute respiratory acidosis: Elevated troponin: Prolonged QT interval: S/P laparoscopic cholecystectomy: Urinary retention: Discharge Exam General- No acute distress Head- atraumatic Eyes- PERRL, EOMI, ENT- oropharynx clear Neck- supple, no JVD Lungs- clear to auscultation Heart- regular rhythm; no murmur Abdomen- normal bowel sounds, soft, nontender Extremities- no calf tenderness Neuro- alert, oriented x 3; PERRL, EOMI; no facial palsy; no dysarthria Skin- warm & dry Discharge Data Allergies Allergy/AdvReac Type Severity Reaction Status Date / Time Sulfa (Sulfonamide Allergy Rash Verified 06/08/20 19:53 Antibiotics) Consultations 06/08/20 19:49 ED Decision to Admit Stat 06/08/20 21:27 Consult Case Management - Discharge Planning Routine 06/09/20 08:00 Consult General Surgery Routine 06/09/20 14:01 Consult Gastroenterology Routine 06/12/20 16:44 Consult Urology Routine Procedures Performed Operation Date: 06/11/20 16:30 <No data on this case meets the specified criteria> Ordered Studies 06/08/20 18:29 CT angio chest PE protocol Stat 06/12/20 FL barium swallow Routine 06/12/20 16:42 US renal/blad retro comp Urgent US renal/blad retro comp HISTORY: Renal insufficiency Acute urinary retention COMPARISON: None. FINDINGS: Right kidney: Maximum dimension 9.7 cm. No evidence for hydronephrosis. Trace amount of perinephric fluid. Normal corticomedullary differentiation and cortical thickness. Left kidney: Maximum dimension 9.5 cm. No evidence for hydronephrosis. Mild cortical scarring Bladder: Distended with a maximum volume of 900 cc. IMPRESSION: 1. Mild cortical scarring bilaterally. 2. No evidence for hydronephrosis. 3. Trace amount of right perinephric fluid. 4. Distended bladder. ACT 112: Negative or not required by law. The above report was generated using voice recognition software. It may contain grammatical, syntax or spelling errors. Electronically signed by: Chucky Fay M.D. 06/13/2020 6:55 AM Dictated: 06/13/20 0654 Transcribed: 06/13/20 0654 FL barium swallow CLINICAL HISTORY: Fluid-filled esophagus. COMPARISON STUDY: No previous studies for comparison. Fluoroscopy time: 1.3 minutes. Number of fluoroscopic images: 17. FINDINGS: This exam was technically difficult. A small hiatal hernia was noted. There was mild esophageal dysmotility. No reflux was elicited. No esophageal mass was identified although mucosal detail is diminished on this examination. There was persistent holdup of a 13 mm barium tablet within the distal esophagus. Slight irregularity of the distal esophagus is noted. IMPRESSION: 1. Slight irregularity of the distal esophagus with persistent hold up of a 13 mm barium tablet within the distal esophagus. No definite esophageal lesion identified however GI consultation for consideration for endoscopy is recommended to exclude a mucosal lesion. 2. Small hiatal hernia. 3. Mild esophageal dysmotility. 3. Technically difficult exam. ACT 112: Positive. There are findings on this exam that require communication between the performing entity and the patient following Patient Test Result Information Act ([place] Act 112) guidelines. Electronically signed by: Asher Butler M.D. 06/12/2020 10:44 AM Dictated: 06/12/20 1017 Transcribed: 06/12/[address] ANGIOGRAPHY OF THE CHEST, PULMONARY EMBOLUS PROTOCOL CLINICAL HISTORY: Dyspnea. COMPARISON STUDY: Chest radiograph November 22, 2019 and June 08, 2020. TECHNIQUE: Following IV administration of 119 mL of Optiray-320, helical axial images of the chest were obtained utilizing the pulmonary embolus protocol. Maximal intensity projections and sagittal and coronal reformats were viewed on an independent 3D workstation. IV contrast was administered without complication. Automated exposure control was utilized for the study. A dose lowering technique was utilized adhering to the principles of ALARA. CT DOSE: 312.94 mGy.cm FINDINGS: No pulmonary emboli are identified. There is no evidence for thoracic aortic dissection. Mild cardiomegaly is noted. There is no pericardial effusion. A small hiatal hernia is noted. The esophagus is fluid-filled and mildly dilated. There is no pneumothorax. There are trace bilateral pleural effusions. Moderate right lower lobe airspace opacity is noted. There is also airspace opacity within the dependent aspects of the upper lobes and left lower lobe. There is moderate emphysema. Interlobular septal thickening indicates pulmonary edema. Visualized portions of the upper abdomen demonstrate pneumoperitoneum and a small amount of perihepatic ascites. There is no thoracic lymphadenopathy. IMPRESSION: 1. No pulmonary emboli identified. 2. Interlobular septal thickening consistent with interstitial pulmonary edema. Trace bilateral pleural effusions. 3. Moderate right lower lobe airspace opacity. Additional mild airspace opacities within the bilateral upper lobes and left lower lobe. The findings may reflect pneumonia or atelectasis. 4. Moderate emphysema. 5. Small hiatal hernia. Mildly dilated fluid-filled esophagus which could place the patient at risk for aspiration. 6. Pneumoperitoneum and perihepatic ascites which is likely postsurgical. ACT 112: Negative or not required by law. Electronically signed by: Asher Butler M.D. 06/08/2020 7:43 PM Dictated: 06/08/201934 Transcribed: 06/08/201934 XR chest 1V portable CLINICAL HISTORY: Dyspnea COMPARISON STUDY: Chest radiograph November 22, 2019 FINDINGS: There is no pneumothorax or pleural effusion. Mild interstitial thickening is noted. Linear bibasilar opacities are present. There is mild cardiomegaly. Lung volumes are mildly diminished. IMPRESSION: 1. Mild interstitial thickening which favors mild pulmonary edema. An infectious process could appear similar but is considered less likely. Radiographic follow up is recommended. 2. Linear bibasilar opacities which favor atelectasis. ACT 112: Negative or not required by law. Electronically signed by: Asher Butler M.D. 06/08/2020 6:13 PM Dictated: 06/08/201811 Transcribed: 06/08/201811 Hospital Course (1) Hypoxia: (2) Aspiration pneumonitis: Post op acute hypoxic respiratory failure secondary to aspiration. CTA did not show any PE. It did show RLL opacity, fluid filled esophagus, small hiatal hernia Aspiration likely in the setting of poor recovery post op as reported in H/P Aspiration precautions MEDICINE WORKER recommendations noted Leukocytosis is improving 25k -->12k Currently on Zosyn for now. Will transition to oral Augmentin antibiotics on discharge to complete therapy Patient was evaluated by GI. Was initially planned for endoscopy. However, this was deferred to outpatient. Plan to discharge on po ppi per GI recs Barium swallow today showed mild esophageal dysmotility and Slight irregularity of the distal esophagus with persistent hold up of a 13 mm barium tablet within the distal esophagus Discussed with MEDICINE WORKER Patient's diet changed to soft easy to chew, slippery diet. Patient can have large pills broken or crushed for easy Educated on aspiration precautions Oxygen was successfully weaned off today. Ambulatory pulse oximetry did not show any need for oxygen Saturated well on RA (3) Acute hypotension: Likely due to post op med effects and aspiration Resolved now BP is controlled now Continue home lisinopril and amlodipine (4) Acute respiratory acidosis: Resolved (5) Elevated troponin: Troponin was elevated Likely due to demand myocardial ischemia EKG is NSR, no ischemic changes No chest pain or ACS equivalent Echo showed normal LV chamber size with mild concentric LVH hyperdynamic LV systolic function with ejection fraction more than 70%. No segmental left ventricle wall motion abnormality are noted. Grade 1 diastolic dysfunction. No significant valvular pathology (6) Prolonged QT interval: QTc was 510 on admission, normalized 451 Likely due to effects of anesthetic meds Avoid QT prolonging meds (7) S/P laparoscopic cholecystectomy: S/p lap [place] and ventral hernia repair Surgical site looks fine Good recovery Surgery has been on board Diet advanced as tolerated Stable (8) Urinary retention: Developed urinary retention 2nights ago and required chen after failed void post straight cath Patient did not void after chen was removed Renal u/s showed mild cortical scarring bilaterally. No evidence for hydronephrosis. Trace amount of right perinephric fluid. Distended bladder. Encourage po fluid intake Urology on board recommended to keep chen cath ob discharge for a total of 7-10 days to allow max drainage and bladder rest. Follow-up with urology service in 7-10 days for voiding trial and office visit. OK from urology standpoint to discharge home today (9) DVT prophylaxis: Hep sq Total Time Total Time Spent Total Time Spent (In Minutes): 35 minutes Total Time Includes: Examination of the Patient, Discharge Planning, Medication Reconciliation, Communication With Other Providers and Other Discharge Plan Discharge Items Patient Disposition: Home - Self-Care Reason For Visit: POST OP HYPOTENSION Discharge Diagnosis: Post operative acute hypoxic respiratory failure Aspiration pneumonia Condition on Discharge: Good Activity: Resume your previous activity Non-emergency contact: Primary Care Provider, Surgeon and Design Project Manager Call non-emergency contact if: you have any medication questions, your symptoms worsen and your temperature is above 101 Follow-up/Referrals: Jefferson Giron MD [Primary Care Provider] - 06/18/20 12:00 pm (06/18/2020 12:00 PM Provider Jefferson Giron MD Department General Internal Medicine [facility] ) Diet: Heart Healthy Diet Texture: Easy to Chew Ambulatory Orders: Basic Metabolic Panel (Routine) Timeframe: 3 Days Location: Determined by Patient Ordered By: Millicent Hernandez Attending Provider Instructions: Ms Shell. You were transferred to the hospital after you had problems waking up, low oxygen levels and low blood pressure after surgery (laparoscopic cholec ystectomy). You were evaluated and treated for aspiration pneumonia. You required oxygen briefly and was gradually weaned off. Please continue incentive spirometry at home. Please complete remaining days of antibiotics. CT scan and swallow studies did show mild esophageal dysmotility. It is important that you eat soft easy to chew, slippery diet and maintain the aspiration precautions we discussed such as sitting upright for a few hours after eating, eating upright, breaking or crushing large tablets when taking them. It is very important that you follow up with the Gastroenterology office for endoscopy. Keep the chen catheter for now to help you to urinate and bladder rest. Follow up with urology office in 7 to 10 days for voiding trial and office visit. (Please call for the appointment) Fall precaution Please follow up with your Primary Doctor Mack on 06/18 @ 12PM It was a pleasure taking care of you. No heavy lifting over 10 pounds for 3 weeks No strenuous activity until cleared by surgeon No submerging incisions underwater for 2 weeks (no swimming, bathing, hot tubs) but you may shower and gently clean the incisions with soap and water and pat dry. Walking and light activities encouraged daily to prevent blood clots from forming You will be given prescription for narcotic pain medication (Percocet) as needed for moderate severe pain. Take as directed this medication may cause drowsiness and constipation. You may take extra strength Tylenol as needed for mild pain Pending Studies at Discharge: No Stand-Alone Forms: My Dimmi, Smoking Cessation Medications and DC Order Prescriptions: New pantoprazole 40 mg Tablet,Delayed Release (Dr/Ec) 40 mg PO BID 30 Days Qty: 60 RF: 0 Continued aspirin [Aspir-81] 81 mg Tablet,Delayed Release (Dr/Ec) 81 mg PO QAM RF: 0 amlodipine 10 mg Tablet 10 mg PO HS RF: 0 simvastatin 20 mg Tablet 20 mg PO HS RF: 0 lisinopril 10 mg Tablet 5 mg PO HS RF: 0 Probiotic 3 billion cell Capsule 3,000 mmu cells PO HS RF: 0 acetaminophen [Tylenol Extra Strength] 500 mg Tablet 1,000 mg PO Q6H PRN (Reason: Pain) RF: 0 cholecalciferol (vitamin D3) [Vitamin D3] 10 mcg (400 unit) Tablet 20 mcg PO DAILY RF: 0 Discharge Orders: Discharge Order (Routine); Ordered 06/13/20 Ordered By: Jocelyn Marti Admission Data Admit Date/Time: 06/08/20 20:09 Attending Provider: Jocelyn Marti Admit Provider: Tim Ayala Primary Care Provider: Jefferson Giron Other Providers: Tim Ayala ; Jason Conde ; Romana Hooper ; Edinson Sapp ; Millicent Beltran I. ; [facility] Other Interventions: Discharge Summary Assessment (RN) Last Done: 06/13/20 10:52
== END 2020-06-13 15:14 | disposition home health service (06) | DRG 177 ==
LOC: ED 17:29 → SUATTDRO 20:09 → 2N 20:09